=== PATIENT | female | born 1985 | race Caucasian/White ===

== ENCOUNTER 2021-03-18 12:42 | Emergency (ER) | payer MEDICAID, SELFPAY ==
[2021-03-18 14:09] VITALS: BP 134/82; PULSE 67; RESP 14; TEMP 36.9; O2SAT 100; BMI 49.3
--- NOTE | 2021-03-18 14:25 | HMH.EDUTC ---
[facility] [place] Disposition Clinical Impression: Eye problem Disposition: Home, Self-Care Condition on Discharge: Good Additional Instructions: Go straight to [facility] upon leaving the [facility] Further treatment per [facility] Return if needed Straight to ER if any life threatening symptoms Referrals: Provider,Referral, [Primary Care Provider] - [facility] [Other] Medical Decision Making - Anand Inquiry Pt receiving controlled substance: No Anand was queried for this patient: No Vital Signs: 03/18/21 14:09 03/18/21 14:31 Temperature 98.4 F 98.4 F Temperature Source Oral Pulse Rate 67 Pulse Rate [Left] 67 Respiratory Rate 14 14 Blood Pressure 134/82 Blood Pressure [Right Arm] 134/82 Blood Pressure Mean [Right Arm] 99 02 Sat by Pulse Oximetry 100 - Physician Consults Physician Consulted: Dr Briceno Time: 14:33 Reason -: Opthalmology Eval/Care Comment/Response: Spoke with staff at Dr Briceno office and informed them of finding and they advised to Dc patient from the [facility] and have her come to the office for further evaluation and treatment [facility] [place] HPI - General Stated complaint: left eye swollen Time Seen by Provider: 03/18/21 14:25 Mode of Arrival: Ambulatory Source of Information: Patient Limitations: No Limitations Description of Symptoms (Recalled from Triage Doc. by RN): pt was tx 01/13 at the [facility] for a stye in the upper L eyelid. pt reports the eye has gotten worse since. the upper L eye lid is edematous fron the inside corner all the way accross to the outside corner so much that her eye is almost swelled shut. HEENT Symptoms (Recalled from RN notes): Yes (L upper eye lid edema and pain) Resp Symptoms (Recalled from RN notes): No Skin Symptoms (Recalled from RN notes): No MS Symptoms (Recalled from RN notes): No Functional Status (Recalled from RN notes): wnl - History of Present Illness Provider Complaint: Patient states that she was seen and treated over the weekend for stye and swelling in left eye States that since then it has continued to swell but has been draining yellowish green pus States that today she was still having drainage and felt like she had another bump under her eyelid so she came in to get checked - Related Data Previous Rx's Medication Instructions Recorded norgestimate 0.25 mg-ethinyl 1 tab PO DAILY #28 tab 01/07/21 estradiol 35 mcg tablet spironolactone 100 mg tablet 100 mg PO DAILY #30 tab 01/07/21 erythromycin 5 mg/gram (0.5 %) eye 0.5 inch OPHTHALMIC BID #1 g 03/15/21 ointment Allergies Allergy/AdvReac Type Severity Reaction Status Date / Time diphenhydramine Allergy HIVES Verified 03/15/21 16:33 [From Benadryl] - Worker's Comp Is this a Worker's Comp case?: No [facility] History - Hepatitis A Screen Drug use history?: No High risk sexual behaviors?: No History of sexually transmitted infection?: No Currently employed?: No Childcare worker?: No Do you have indoor plumbing?: Yes Do you have electricity?: Yes Attestation statement:: This patient has been screened for Hepatitis A risk factors. 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
[2021-03-18 14:31] VITALS: BP 134/82; PULSE 67; RESP 14; TEMP 36.9
== END 2021-03-18 14:33 | disposition home or self-care (01) ==
PROVIDERS: Emergency Provider Nurse Practitioner
DX: H02.844 Edema of left upper eyelid (principal); F17.210 Nicotine dependence, cigarettes, uncomplicated
CPT/HCPCS: 99202; G0463

== ENCOUNTER → 2021-05-08 13:57 | Outpatient (CLI) | payer MEDICAID, SELFPAY | PROVIDERS: PCP Nurse Practitioner Family; Visit Provider Nurse Practitioner | DX: U07.1 COVID-19 (principal) | CPT/HCPCS: C9803; U0003; U0005 ==

== ENCOUNTER → 2021-06-06 11:30 | Outpatient (CLI) | payer MEDICAID, SELFPAY ==
[2021-06-07 12:14] LABS: Covid-19 Nasal PCR Sendout Lex NOT DETECTED
== END ==
PROVIDERS: Visit Provider Nurse Practitioner
DX: Z20.822 Contact with and (suspected) exposure to COVID-19 (principal)
CPT/HCPCS: C9803; U0004; U0005

== ENCOUNTER 2021-10-17 16:35 | Emergency (ER) | payer MEDICAID, SELFPAY ==
[2021-10-17 16:50] VITALS: BP 137/105; PULSE 81; RESP 18; TEMP 36.7; O2SAT 100; BMI 25.1
--- NOTE | 2021-10-17 17:15 | HMH.EDUTC ---
[facility] [place] Disposition Clinical Impression: Encounter for laboratory testing for COVID-19 virus Disposition: Home, Self-Care Condition on Discharge: Good Instructions: Sore Throat, DI for COVID-19 (Suspected or Confirmed ), Preventing the Spread of Coronavirus Discharge Instructions Additional Instructions: *Monitor Temp, Over the counter Motrin or Tylenol as directed/as needed Tylenol every 4 hours and Motrin every 6 hours (as long as your family doctor has told you that you can take it) for fever or pain. and straight to ER if unable to lower temp less than 101.0 after medication given Follow up IMMEDIATELY for new or worsening symptoms or no Noticeable improvement over the next 48-72 hours. 911 for difficulty breathing or swallowing You were tested for today for COVID19 your test result should be back in the next 24-48 hours, you may check your results on the [facility] my Health Portal Make sure to take your Vitamins Vit. C Vit D and Zinc if you can take them Referrals: Provider,Referral, MD [Primary Care Provider] - As needed Forms: Work/School Release Medical Decision Making - Anand Inquiry Pt receiving controlled substance: No Anand was queried for this patient: No Vital Signs: 10/17/21 16:50 10/17/21 17:19 Temperature 98.0 F 98.0 F Temperature Source Oral Pulse Rate 81 Pulse Rate [Right Brachial] 81 Respiratory Rate 18 18 Blood Pressure 137/105 H Blood Pressure [Right Arm] 137/105 H Blood Pressure Mean [Right Arm] 115 Blood Pressure Source [Right Arm] Automatic Cuff Blood Pressure Position [Right Arm] Sitting 02 Sat by Pulse Oximetry 100 Oxygen Delivery Method Room Air - Lab Data Lab results reviewed: Yes: I reviewed the patient's lab results. Lab Results 10/17/21 17:11: Group A Strep Rapid Negative Orders (Tests/Meds): ORDERS Category Date Time Status Covid-19 Nasal PCR ([facility]) Routine Lab 10/17/21 16:50 Received Strep Screen Confirmation Stat Micro 10/17/21 17:11 Received [facility] [place] HPI - General Stated complaint: Covid Test Time Seen by Provider: 10/17/21 17:10 Mode of Arrival: Ambulatory Source of Information: Patient Limitations: No Limitations Description of Symptoms (Recalled from Triage Doc. by RN): PATIENT C/O SORE THROAT, VOMITING, EAR ACHE, AND LOSS OF TASTE. POSITIVE AT HOME COVID TEST HEENT Symptoms (Recalled from RN notes): No Resp Symptoms (Recalled from RN notes): No Skin Symptoms (Recalled from RN notes): No MS Symptoms (Recalled from RN notes): No Functional Status (Recalled from RN notes): WNL - History of Present Illness Provider Complaint: Patient states that she has been having sore scratchy throat, nasal congestion, vomiting and loss of taste States that she took an at home COVID test and it was positive so she came in to get checked out - Related Data Previous Rx's Medication Instructions Recorded norgestimate 0.25 mg-ethinyl 1 tab PO DAILY #28 tab 01/07/21 estradiol 35 mcg tablet erythromycin 5 mg/gram (0.5 %) eye 0.5 inch OPHTHALMIC BID #1 g 03/15/21 ointment spironolactone 100 mg tablet See Rx Instructions .ROUTE 09/04/21 .COMPLEX #30 tab Allergies Allergy/AdvReac Type Severity Reaction Status Date / Time diphenhydramine Allergy HIVES Verified 03/15/21 16:33 [From Benadeunicel] - Worker's Comp Is this a Worker's Comp case?: No [facility] History - Hepatitis A Screen Attestation statement:: This patient has been screened for Hepatitis A risk factors. 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
[2021-10-17 17:19] VITALS: BP 137/105; PULSE 81; RESP 18; TEMP 36.7; O2SAT 100
[2021-10-17 17:30] LABS: Strep Scrn Group A (Rapid) Negative (Negative)
== END 2021-10-17 17:45 | disposition home or self-care (01) ==
PROVIDERS: Emergency Provider Nurse Practitioner
DX: Z20.822 Contact with and (suspected) exposure to COVID-19 (principal); J02.9 Acute pharyngitis, unspecified; R11.10 Vomiting, unspecified; H92.09 Otalgia, unspecified ear; R43.9 Unspecified disturbances of smell and taste
CPT/HCPCS: 87430; 99212; C9803; G0463; U0003; U0005

== ENCOUNTER 2021-10-31 04:41 | Emergency (ER) | payer MEDICAID, SELFPAY ==
[2021-10-31 04:50] VITALS: BP 152/87; PULSE 105; RESP 24; TEMP 38.5; O2SAT 99; BMI 50.2
--- NOTE | 2021-10-31 04:56 | XR_ITS ---
PROCEDURE INFORMATION: Exam: XR Chest Exam date and time: 10/31/2021 5:00 AM Age: 36 years old Clinical indication: Cough and fever; Additional info: Cough, fever TECHNIQUE: Imaging protocol: Radiologic exam of the chest. Views: 2 views. COMPARISON: No relevant prior studies available. FINDINGS: Lungs: No acute findings or consolidation. Pleural spaces: No pleural effusion. No pneumothorax. Heart/Mediastinum: No acute findings or cardiomegaly. Bones/joints: No acute findings. IMPRESSION: No acute cardiopulmonary findings.
[2021-10-31 05:06] LABS: Basophils # 0.2 K/mm3 (0-0.2); Basophils % 2.6 % (0.1-2.0); Eosinophils # 0.1 K/mm3 (0.0-0.4); Hematocrit 37.9 % (37.0-47.0); Hemoglobin 12.1 g/dL (12.2-16.2); Lymphocytes # 1.2 K/mm3 (0.7-4.5); Lymphocytes % 18.1 % (10-50); Mean Corpuscular HGB Conc 31.9 g/dL (31.8-35.4); Mean Corpuscular Hemoglobin 29.1 pg (27.0-31.2); Mean Corpuscular Volume 91.2 fl (81-99); Mean Platelet Volume 8.4 fl (7.4-10.4); Monocytes # 0.2 K/mm3 (0.1-1.0); Monocytes % 3.6 % (1.7-9.3); Neutrophils # 4.9 K/mm3 (1.8-7.8); Neutrophils % 73.7 % (37.0-80.0); Platelet Count 362 K/mm3 (142-424); Red Blood Count 4.15 M/mm3 (4.20-5.40); Red Cell Distribution Width 14.1 % (11.5-17.5); White Blood Count 6.7 K/mm3 (4.8-10.8)
[2021-10-31 05:11] LABS: Alanine Aminotransferase 30 U/L (12-78); Albumin/Globulin Ratio 1.2 (1.1-1.8); Alkaline Phosphatase 72 U/L (38-126); Anion Gap 11.7 mEq/L (5-15); Aspartate Amino Transferase 26 U/L (14-36); Blood Urea Nitrogen 15 mg/dl (7-17); Calcium 8.5 mg/dl (8.4-10.2); Carbon Dioxide 27 mmol/L (22.0-30.0); Chloride 105 mmol/L (98-107); Creatinine Clearance Estimated 74 mL/min (50-200); Estimated Glomerular Filt Rate 82 ml/min (>60); GFR (African American) 99 ML/MIN (>60); Globulin 3.3 g/dL (1.3-3.2); Glucose 98 mg/dl (74-100); Potassium 3.7 mmoL/L (3.5-5.1); Sodium 140 mmol/L (136-145); Total Protein,Serum 7.3 g/dl (6.3-8.2)
[2021-10-31 05:15] LABS: Bilirubin,Total < 0.1 mg/dl (0.2-1.3)
[2021-10-31 05:35] LABS: Influenza A, PCR Not Detected (NotDetected); Influenza B, PCR Not Detected (NotDetected)
[2021-10-31 05:58] LABS: Coronavirus 19, PCR Detected (NotDetected)
--- NOTE | 2021-10-31 06:59 | HMH.EDFEV ---
ED Disposition Clinical Impression: COVID-19 Disposition: Home, Self-Care Condition on Discharge: Good Instructions: DI for Fever (Symptom) -- Adult Additional Instructions: fluids and advil/tyenol and call pcp as needed Referrals: Provider,Referral, MD [Primary Care Provider] - - Critical Care Critical Care Time: No Attestation: On 10/31/21, the high probability of a clinically significant, sudden or life threatening deterioration of the following system(s) required my full and direct attention, intervention and personal management. The time I documented below is in addition to time spent performing reported procedures but includes the following listed in this critical care notation. Medical Decision Making - Medical Records Medical records reviewed: Yes: I reviewed the patient's medical records. - Anand Inquiry Pt receiving controlled substance: No Vital Signs: 10/31/21 04:50 Temperature 101.3 F H Temperature Source Oral Pulse Rate [Right Brachial] 105 H Respiratory Rate 24 Blood Pressure [Right Arm] 152/87 H Blood Pressure Mean [Right Arm] 108 Blood Pressure Source [Right Arm] Automatic Cuff Blood Pressure Position [Right Arm] Sitting 02 Sat by Pulse Oximetry 99 Oxygen Delivery Method Room Air - Lab Data Lab results reviewed: Yes: I reviewed the patient's lab results. Lab Results 10/31/21 04:45: SARS-CoV-2 (PCR) Detected A, Influenza A Untype (PCR) Not detected, Influenza Type B (PCR) Not detected 10/31/21 04:52: WBC 6.7, RBC 4.15 L, Hgb 12.1 L, Hct 37.9, MCV 91.2, MCH 29.1, MCHC 31.9, RDW 14.1, Plt Count 362, MPV 8.4, Neut % (Auto) 73.7, Lymph % (Auto) 18.1, Sully % (Auto) 3.6, Eos % (Auto) 2.0, Baso % (Auto) 2.6 H, Neut # (Auto) 4.9, Lymph # (Auto) 1.2, Sully # (Auto) 0.2, Eos # (Auto) 0.1, Baso # (Auto) 0.2 10/31/21 04:52: Sodium 140, Potassium 3.7, Chloride 105, Carbon Dioxide 27, Anion Gap 11.7, BUN 15, Creatinine 0.80, Estimated Creat Clear 74, Estimated GFR 82, Est GFR ( Amer) 99, Glucose 98, Calcium 8.5, Total Bilirubin < 0.1 L, AST 26, ALT 30, Alkaline Phosphatase 72, Total Protein 7.3, Albumin 4.0, Globulin 3.3 H, Albumin/Globulin Ratio 1.2 Result diagrams: 10/31/21 04:52 10/31/21 04:52 Orders (Tests/Meds): ED MEDICATIONS Discontinued Medications Generic Name Dose Route Start Last Admin Trade Name Cleve PRN Reason Stop Dose Admin Sodium Chloride 1,000 mls @ 999 mls/hr 10/31/21 05:00 10/31/21 04:59 Sod Chlor 0.9% 1000ml Bag IV 10/31/21 06:00 999 mls/hr .Q1H1M NADIA Administration Ketorolac Tromethamine 30 mg 10/31/21 04:56 10/31/21 04:59 Ketorolac 30mg/Ml Vial IV 10/31/21 04:57 30 mg ONCE ONE Administration Methylprednisolone Sodium Succinate 125 mg 10/31/21 04:56 10/31/21 04:59 Methylprednisolone Sod Succ 125mg Vial IV 10/31/21 04:57 125 mg ONCE ONE Administration Ondansetron HCl 4 mg 10/31/21 04:56 10/31/21 04:59 Ondansetron 4mg/2ml Vial IV 10/31/21 04:57 4 mg ONCE ONE Administration - Radiology Data #1 Image(s): Chest Image Reviewed: Yes I have reviewed radiologist's interpretation Preliminary Findings: Normal/NAD Medical Decision Narrative: has stable exam and covid-19 Fever HPI - General Chief Complaint: Fever Stated Complaint: fever, chills, cough, body aches Time Seen by Provider: 10/31/21 06:00 Mode of Arrival: Family Vehicle Source of Information: Patient, Medical Record Limitations: No Limitations Description of Symptoms (Recalled from ER Triage Doc. by RN): patient presents with complaints of chills,fever,body aches, dry cough. states she started feeling badly yesterday and thought it was where she had snuck and smoked a few cigarettes after having quit for several weeks. Patient goes on to deny any additional medical history, although admits to taking spironolactone daily. Did not received covid or flu vaccines. Has not sought medical care for this prior to this visit. Has not taken any O
[2021-10-31 07:12] VITALS: BP 121/69; PULSE 78; RESP 17; TEMP 37.2; O2SAT 95
== END 2021-10-31 07:19 | disposition home or self-care (01) ==
PROVIDERS: Emergency Provider Emergency Medicine
DX: U07.1 COVID-19 (principal); R50.9 Fever, unspecified; E28.2 Polycystic ovarian syndrome; E66.9 Obesity, unspecified; Z68.43 Body mass index [BMI] 50.0-59.9, adult; F17.210 Nicotine dependence, cigarettes, uncomplicated; Z88.8 Allergy status to other drugs, medicaments and biological substances
CPT/HCPCS: 71046; 80053; 85025; 96361; 96374; 96375; 99284; C9803; J2405; U0003; U0005

== ENCOUNTER 2022-04-30 10:48 | Emergency (ER) | payer MEDICAID, SELFPAY ==
[2022-04-30 11:40] VITALS: BP 159/89; PULSE 89; RESP 19; TEMP 36.8; O2SAT 95; BMI 52.9
--- NOTE | 2022-04-30 11:41 | EXP.UTC ---
Discharge Plan Disposition Patient Disposition: Home, Self-Care Condition: Good Prescriptions Prescriptions: New prednisone 10 mg tablet 10 mg PO BID 3 Days Qty: 6 0RF amoxicillin [amoxicillin] 500 mg tablet 500 mg PO TID 10 Days Qty: 30 0RF benzonatate [benzonatate] 100 mg capsule 100 mg PO TIDP PRN (Reason: Cough) Qty: 30 0RF No Action erythromycin 5 mg/gram (0.5 %) ointment 0.5 inch OPHTHALMIC BID Qty: 1 0RF Rx Instructions: apply ointment for the next 7 days. norgestimate-ethinyl estradiol [Sprintec (28)] 0.25-35 mg-mcg tablet 1 tab PO DAILY Qty: 28 6RF spironolactone 100 mg tablet See Rx Instructions .ROUTE .COMPLEX Qty: 30 6RF Dose Instruction: TAKE ONE TABLET BY MOUTH ONCE DAILY Rx Instructions: TAKE ONE TABLET BY MOUTH ONCE DAILY Referrals Follow up/Referrals: Provider,Referral, MD [Primary Care Provider] - See instructions Activity Restrictions/Add. Instructions Additional Instructions/Restrictions: Drink plenty of fluids. Take tylenol or ibuprofen for pain or fever. Take the medications as directed. Follow up with your regular doctor. GO TO THE ER FOR ANY WORSENING SYMPTOMS Clinical Impressions Clinical Impression: Strep throat Stand Alone Forms Stand Alone Forms: Work/School Release Instructions Patient Instructions: Strep Throat, DI for Strep Throat Discharge ED Provider: Chandana Flores [facility] [place] General Stated complaint: cough, sore throat, Lt ear pain Time Seen by Provider: 04/30/22 11:41 History of Present Illness Provider Complaint: She states that she has had a sore throat for the past 3 days. She also has had chills and body aches. Related Data Previous Rx's Medication Instructions Recorded norgestimate 0.25 mg-ethinyl 1 tab PO DAILY #28 tabs 01/07/21 estradiol 35 mcg tablet (Sprintec (28)) erythromycin 5 mg/gram (0.5 %) eye 0.5 inch ophthalmic (eye) BID #1 g 03/15/21 ointment spironolactone 100 mg tablet See Rx Instructions .Route 11/13/21 .COMPLEX #30 tabs amoxicillin 500 mg tablet 500 mg PO TID 10 days #30 tabs 04/30/22 benzonatate 100 mg capsule 100 mg PO TIDP PRN Cough #30 caps 04/30/22 prednisone 10 mg tablet 10 mg PO BID 3 days #6 tabs 04/30/22 PFSH [facility] Disclaimer: The information contained in this section may have been updated after the patient was seen, as this information can be updated by other users. Social History Smoking Status: Current every day smoker tobacco type: cigarettes alcohol intake: never current occupational status: unemployed Travel in the last 8 weeks: None ROS Obtained: Yes All systems reviewed & no additional complaints except as documented Constitutional Constitutional: Reports chills and Reports fever(s) Eyes Eyes: Denies eye discharge ENT Ears, Nose, Mouth, and Throat: Reports as per HPI Cardiovascular Cardiovascular: Denies chest pain Respiratory Respiratory: Denies chest congestion and Reports cough Gastrointestinal Gastrointestingal: Reports nausea; Denies abdominal pain, constipation, cramping, diarrhea or vomiting Musculoskeletal Musculoskeletal: Denies arthralgias Integumentary/Breasts Skin/Breast: Denies rash Neurologic Neurologic: Denies paresthesias Physical Exam General General appearance: alert and in no apparent distress Head Head exam: atraumatic, normocephalic and normal inspection Eye Eye exam: Present normal appearance, PERRL and EOMI ENT ENT exam: Present mucous membranes moist and normal external ear exam Expanded ENT Exam TM/Canal exam: Bilateral TM: erythema and bulging Nose exam: Absent sinus tenderness Mouth exam: Present normal external inspection; Absent drooling Teeth exam: Present normal inspection Throat exam: Present tonsillar erythema, tonsillomegaly and tonsillar exudate Neck Neck exam: Present normal inspection, full ROM and trachea midline; Absent tenderness,
[2022-04-30 11:49] LABS: UTC Strep Screen (Rapid) Positive (Negative)
[2022-04-30 12:17] VITALS: BP 159/89; PULSE 89; RESP 19; TEMP 36.8; O2SAT 95
== END 2022-04-30 12:17 | disposition home or self-care (01) ==
PROVIDERS: Emergency Provider Nurse Practitioner Family
DX: J02.0 Streptococcal pharyngitis (principal)
CPT/HCPCS: 87880; 99212; 99213; G0463

== ENCOUNTER 2022-07-04 19:46 | Emergency (ER) | payer MEDICAID, SELFPAY ==
[2022-07-04 19:59] VITALS: BP 135/86; PULSE 102; RESP 18; TEMP 36.6; O2SAT 97; BMI 49.1
[2022-07-04 20:12] LABS: Coronavirus 19, PCR Not Detected (NotDetected); Influenza A, PCR Not Detected (NotDetected); Influenza B, PCR Not Detected (NotDetected)
[2022-07-04 20:26] LABS: Strep Scrn Group A (Rapid) Negative (Negative)
--- NOTE | 2022-07-04 20:53 | HMH.EDURI ---
Discharge Plan Disposition Patient Disposition: Home, Self-Care Prescriptions Prescriptions: New prednisone [prednisone] 20 mg tablet 20 mg PO BID Qty: 10 0RF cephalexin [cephalexin] 500 mg capsule 500 mg PO TID Qty: 30 0RF No Action erythromycin 5 mg/gram (0.5 %) ointment 0.5 inch OPHTHALMIC BID Qty: 1 0RF Rx Instructions: apply ointment for the next 7 days. norgestimate-ethinyl estradiol [Sprintec (28)] 0.25-35 mg-mcg tablet 1 tab PO DAILY Qty: 28 6RF spironolactone 100 mg tablet See Rx Instructions .ROUTE .COMPLEX Qty: 30 6RF Dose Instruction: TAKE ONE TABLET BY MOUTH ONCE DAILY Rx Instructions: TAKE ONE TABLET BY MOUTH ONCE DAILY prednisone 10 mg tablet 10 mg PO BID 3 Days Qty: 6 0RF amoxicillin [amoxicillin] 500 mg tablet 500 mg PO TID 10 Days Qty: 30 0RF benzonatate [benzonatate] 100 mg capsule 100 mg PO TIDP PRN (Reason: Cough) Qty: 30 0RF Referrals Follow up/Referrals: Luis Alberto Calloway APRN [Primary Care Provider] - See instructions Clinical Impressions Clinical Impression: Uvulitis Discharge ED Provider: Felicia (ED)Tio URI/Sore Throat HPI General Chief Complaint: Upper Respiratory Infection Stated Complaint: FB stuck in throat SOB Time Seen by Provider: 07/04/22 20:53 Mode of Arrival: Ambulatory Source of Information: Patient and Medical Record Limitations: No Limitations Description of Symptoms (Recalled from ER Triage Doc. by RN): Pt arrives via private vehicle. States that she has felt a fullness in her throat since Wednesday. States that when she woke up this morning she states that the fullness goes down my throat when I swallow . States that she can swallow fluids and foods. Does report that she has been having some left sided ear pain. History of Present Illness HPI Narrative: pt with swelling with post throat over the last few days with painful swolling MD Complaint: sore throat Onset (ago): day(s) Duration: intermittent Severity: moderate Able to tolerate fluids by mouth: Yes Associated symptoms: denies other symptoms Treatments prior to arrival: none Related Data Previous Rx's Medication Instructions Recorded norgestimate 0.25 mg-ethinyl 1 tab PO DAILY #28 tabs 01/07/21 estradiol 35 mcg tablet (Sprintec (28)) erythromycin 5 mg/gram (0.5 %) eye 0.5 inch ophthalmic (eye) BID #1 g 03/15/21 ointment spironolactone 100 mg tablet See Rx Instructions .Route 11/13/21 .COMPLEX #30 tabs amoxicillin 500 mg tablet 500 mg PO TID 10 days #30 tabs 04/30/22 benzonatate 100 mg capsule 100 mg PO TIDP PRN Cough #30 caps 04/30/22 prednisone 10 mg tablet 10 mg PO BID 3 days #6 tabs 04/30/22 cephalexin 500 mg capsule 500 mg PO TID #30 caps 07/04/22 prednisone 20 mg tablet 20 mg PO BID #10 tabs 07/04/22 Allergies Allergy/AdvReac Type Severity Reaction Status Date / Time No Known Allergies Allergy Verified 07/04/22 20:03 [facility] Disclaimer: The information contained in this section may have been updated after the patient was seen, as this information can be updated by other users. Social History Smoking Status: Current every day smoker tobacco type: cigarettes alcohol intake: never current occupational status: unemployed Travel in the last 8 weeks: None ROS Obtained: Yes All systems reviewed & no additional complaints except as documented Physical Exam General General appearance: alert Head Head exam: normocephalic Eye Eye exam: Present PERRL and EOMI ENT ENT exam: Present mucous membranes moist and other (swollen ) Neck Neck exam: Present trachea midline Respiratory Respiratory exam: Absent respiratory distress Cardiovascular Cardiovascular exam: Present regular rate Abdominal Exam Abdominal exam: Present soft Extremities Exam Extremities exam: Present full ROM Neurological Exam Neurological exam: Present alert, oriented X3 and CN II-XII inta
[2022-07-04 21:24] VITALS: BP 130/80; PULSE 99; RESP 18; TEMP 36.6; O2SAT 99
== END 2022-07-04 21:26 | disposition home or self-care (01) ==
PROVIDERS: Emergency Provider Emergency Medicine; PCP Nurse Practitioner Family
DX: K12.2 Cellulitis and abscess of mouth (principal); F17.210 Nicotine dependence, cigarettes, uncomplicated
CPT/HCPCS: 87430; 99283; 99284; C9803; U0003; U0005

== ENCOUNTER 2022-07-31 20:39 | Emergency (ER) | payer MEDICAID, SELFPAY ==
[2022-07-31 20:40] VITALS: BP 142/98; PULSE 83; RESP 16; TEMP 36.8; O2SAT 98; BMI 51.0
[2022-07-31 21:03] LABS: Coronavirus 19, PCR Not Detected (NotDetected); Influenza A, PCR Not Detected (NotDetected); Influenza B, PCR Not Detected (NotDetected)
--- NOTE | 2022-07-31 21:04 | XR_ITS ---
PROCEDURE INFORMATION: Exam: XR Chest Exam date and time: 07/31/2022 9:03 PM Age: 36 years old Clinical indication: Cough TECHNIQUE: Imaging protocol: Radiologic exam of the chest. Views: 2 views. COMPARISON: CR XR CHEST 2V 10/31/2021 5:00 AM FINDINGS: Lungs: Unremarkable. No consolidation. Pleural spaces: Unremarkable. No pleural effusion. No pneumothorax. Heart/Mediastinum: Unremarkable. No cardiomegaly. Bones/joints: Unremarkable. IMPRESSION: No acute findings.
[2022-07-31 21:16] LABS: Strep Scrn Group A (Rapid) Negative (Negative)
--- NOTE | 2022-07-31 21:29 | HMH.EDURI ---
Discharge Plan Disposition Patient Disposition: Home, Self-Care Prescriptions Prescriptions: New azithromycin [azithromycin] 250 mg tablet 250 mg PO DIRECTED Qty: 6 0RF Rx Instructions: Take two (2) tablets on day #1, then one (1) tablet day #2 thru #5 No Action erythromycin 5 mg/gram (0.5 %) ointment 0.5 inch OPHTHALMIC BID Qty: 1 0RF Rx Instructions: apply ointment for the next 7 days. norgestimate-ethinyl estradiol [Sprintec (28)] 0.25-35 mg-mcg tablet 1 tab PO DAILY Qty: 28 6RF prednisone 10 mg tablet 10 mg PO BID 3 Days Qty: 6 0RF amoxicillin [amoxicillin] 500 mg tablet 500 mg PO TID 10 Days Qty: 30 0RF benzonatate [benzonatate] 100 mg capsule 100 mg PO TIDP PRN (Reason: Cough) Qty: 30 0RF prednisone [prednisone] 20 mg tablet 20 mg PO BID Qty: 10 0RF cephalexin [cephalexin] 500 mg capsule 500 mg PO TID Qty: 30 0RF spironolactone 100 mg tablet See Rx Instructions .ROUTE .COMPLEX Rx Instructions: TAKE ONE TABLET BY MOUTH ONCE DAILY Referrals Follow up/Referrals: Luis Alberto Calloway APRN [Primary Care Provider] - See instructions Clinical Impressions Clinical Impression: Pharyngitis Instructions Patient Instructions: DI for Pharyngitis/Tonsillopharyngitis -- Adult Discharge ED Provider: Felicia (ED)Tio URI/Sore Throat HPI General Chief Complaint: Upper Respiratory Infection Stated Complaint: SORE THROAT, COUGH Time Seen by Provider: 07/31/22 21:15 Mode of Arrival: Ambulatory Source of Information: Patient and Medical Record Limitations: No Limitations Description of Symptoms (Recalled from ER Triage Doc. by RN): Pt arrives to ED with c/o a sore throat and cough for approx 2 days that has worsened today. Pt denies n/v/d, chest pain and having a fever. Pt stated she has taken two doses of anbx that she had at home, but can not recall the name. Pt stated it gave her no relief. History of Present Illness HPI Narrative: sore throat and cough over the last few days no rash MD Complaint: cough and sore throat Onset (ago): day(s) Duration: intermittent Severity: moderate Able to tolerate fluids by mouth: Yes Associated symptoms: denies other symptoms Related Data Home Medications Medication Instructions Recorded Confirmed spironolactone 100 mg tablet See Rx Instructions .Route 07/31/22 07/31/22 .COMPLEX Fluid Previous Rx's Medication Instructions Recorded norgestimate 0.25 mg-ethinyl 1 tab PO DAILY #28 tabs 01/07/21 estradiol 35 mcg tablet (Sprintec (28)) erythromycin 5 mg/gram (0.5 %) eye 0.5 inch ophthalmic (eye) BID #1 g 03/15/21 ointment amoxicillin 500 mg tablet 500 mg PO TID 10 days #30 tabs 04/30/22 benzonatate 100 mg capsule 100 mg PO TIDP PRN Cough #30 caps 04/30/22 prednisone 10 mg tablet 10 mg PO BID 3 days #6 tabs 04/30/22 cephalexin 500 mg capsule 500 mg PO TID #30 caps 07/04/22 prednisone 20 mg tablet 20 mg PO BID #10 tabs 07/04/22 azithromycin 250 mg tablet 250 mg PO DIRECTED #6 tabs 07/31/22 Allergies Allergy/AdvReac Type Severity Reaction Status Date / Time No Known Allergies Allergy Verified 07/04/22 20:03 [facility] Disclaimer: The information contained in this section may have been updated after the patient was seen, as this information can be updated by other users. Social History Smoking Status: Current every day smoker tobacco type: cigarettes alcohol intake: never current occupational status: unemployed Travel in the last 8 weeks: None ROS Obtained: Yes All systems reviewed & no additional complaints except as documented Physical Exam General General appearance: alert Head Head exam: normocephalic Eye Eye exam: Present PERRL and EOMI ENT ENT exam: Present mucous membranes moist Expanded ENT Exam Throat exam: Absent tonsillomegaly, tonsillar exudate, R peritonsillar mass, L peritonsillar mass or muffled voi
[2022-07-31 21:46] VITALS: BP 136/78; PULSE 68; RESP 16; TEMP 36.9; O2SAT 99
== END 2022-07-31 21:50 | disposition home or self-care (01) ==
PROVIDERS: Emergency Provider Emergency Medicine; PCP Nurse Practitioner Family
DX: J02.9 Acute pharyngitis, unspecified (principal); J06.9 Acute upper respiratory infection, unspecified
CPT/HCPCS: 71046; 87430; 99284; C9803; U0003; U0005

== ENCOUNTER 2022-09-25 21:16 | Emergency (ER) | payer MEDICAID, SELFPAY ==
[2022-09-25 21:17] VITALS: BP 153/85; PULSE 82; RESP 17; TEMP 36.7; O2SAT 100; BMI 47.7
--- NOTE | 2022-09-25 21:18 | XR_ITS ---
PROCEDURE INFORMATION: Exam: XR Chest Exam date and time: 09/25/2022 9:54 PM Age: 37 years old Clinical indication: Pain; Chest pressure; Additional info: Chest pain TECHNIQUE: Imaging protocol: Radiologic exam of the chest. Views: 2 views. COMPARISON: CR XR CHEST 2V 07/31/2022 9:03 PM FINDINGS: Lungs: Unremarkable. No consolidation. Pleural spaces: Unremarkable. No pleural effusion. No pneumothorax. Heart/Mediastinum: Unremarkable. No cardiomegaly. Bones/joints: Unremarkable. IMPRESSION: No acute findings.
--- NOTE | 2022-09-25 21:18 | ECG_ITS ---
APPROVED REPORT Exam: Resting ECG HR:83 bpm ECG Measurements Heart Rate 83 AXES SC 131 P 43 QRSd 110 QRS 67 QT 385 T 4 QTc 425 Conclusion SINUS RHYTHM MINIMAL ST DEPRESSION [0.025+ mV ST DEPRESSION] BORDERLINE ECG UNCONFIRMED REPORT Electronically signed by : Jaziel Brooke MD 09/27/2022 11:36:31
[2022-09-25 21:40] LABS: Basophils # 0.1 K/mm3 (0-0.2); Basophils % 0.9 % (0.1-2.0); Eosinophils # 0.2 K/mm3 (0.0-0.4); Eosinophils % 1.6 % (0.1-12.0); Hematocrit 40.2 % (37.0-47.0); Hemoglobin 12.7 g/dL (12.2-16.2); Lymphocytes # 3.4 K/mm3 (0.7-4.5); Lymphocytes % 35.5 % (10-50); Mean Corpuscular HGB Conc 31.5 g/dL (31.8-35.4); Mean Corpuscular Hemoglobin 27.6 pg (27.0-31.2); Mean Corpuscular Volume 87.7 fl (81-99); Mean Platelet Volume 8.5 fl (7.4-10.4); Monocytes # 0.4 K/mm3 (0.1-1.0); Monocytes % 4.6 % (1.7-9.3); Neutrophils # 5.4 K/mm3 (1.8-7.8); Neutrophils % 57.3 % (37.0-80.0); Platelet Count 449 K/mm3 (142-424); Red Blood Count 4.59 M/mm3 (4.20-5.40); Red Cell Distribution Width 13.7 % (11.5-17.5); White Blood Count 9.4 K/mm3 (4.8-10.8)
[2022-09-25 21:41] LABS: Chloride 103 mmol/L (98-107); Potassium 3.9 mmoL/L (3.5-5.1); Sodium 141 mmol/L (136-145)
[2022-09-25 21:43] LABS: Alanine Aminotransferase 26 U/L (12-78); Alkaline Phosphatase 85 U/L (38-126); Aspartate Amino Transferase 31 U/L (14-36); Bilirubin,Total 0.3 mg/dl (0.2-1.3); Blood Urea Nitrogen 15 mg/dl (7-17); Creatinine Clearance Estimated 84 mL/min (50-200); Estimated Glomerular Filt Rate 95 ml/min (>60); GFR (African American) 115 ML/MIN (>60)
[2022-09-25 21:44] LABS: Albumin Level 4.2 g/dl (3.5-5.0); Albumin/Globulin Ratio 1.2 (1.1-1.8); Anion Gap 13.9 mEq/L (5-15); Calcium 8.9 mg/dl (8.4-10.2); Carbon Dioxide 28 mmol/L (22.0-30.0); Globulin 3.5 g/dL (1.3-3.2); Glucose 85 mg/dl (74-100); Total Protein,Serum 7.7 g/dl (6.3-8.2)
[2022-09-25 21:51] LABS: Activated Partial Thrombo Time 30.5 seconds (22.8-30.6); INR 0.89 (0.9-1.1); Prothrombin Time 9.7 seconds (10.1-12.5)
[2022-09-25 21:53] LABS: NT Pro Brain Natriuretic Pep. 33.9 pg/mL (0-125)
--- NOTE | 2022-09-25 21:53 | HMH.EDGENADL ---
Discharge Plan Disposition Patient Disposition: Home, Self-Care Condition: Good Chief Complaint: Chest Pain Prescriptions Prescriptions: No Action spironolactone 100 mg tablet 100 mg PO DAILY Clinical Impressions Clinical Impression: Atypical chest pain Discharge ED Provider: Mark Byrnes Adult HPI General Chief complaint: Chest Pain Stated complaint: CP Time Seen by Provider: 09/25/22 21:18 Mode of Arrival: Ambulatory Source of Information: Patient Limitations: No Limitations Description of Symptoms (Recalled from ER Triage Doc. by RN): 37 F presents from home with 24 hours of left chest pain which she describes at 6/10 sharp and non-radiating. Patient denies SOA, fever, chills. NAD otherwise, VSS History of Present Illness HPI narrative: 37yo F presents the ER secondary to chest pain that began early this morning. Pain is focal, pinpoint. There is no radiation. Denies shortness of breath, chills, diaphoresis, nausea or vomiting. No history of heart disease. Patient states her mother has A-fib, and she does not know what this means, but was concerned she might have A-fib. No previous cardiac work-up. Patient vapes. She denies diabetes. Denies any significant family history of heart disease other than her mother's A-fib. Related Data Home Medications Medication Instructions Recorded Confirmed spironolactone 100 mg tablet 100 mg PO DAILY Fluid 07/31/22 09/25/22 Allergies Allergy/AdvReac Type Severity Reaction Status Date / Time No Known Allergies Allergy Verified 07/04/22 20:03 [facility] Disclaimer: The information contained in this section may have been updated after the patient was seen, as this information can be updated by other users. Social History Smoking Status: Never smoker alcohol intake: never current occupational status: unemployed Travel in the last 8 weeks: None ROS Obtained: Yes Systems reviewed as appropriate & no additional complaints except as documented Physical Exam General General appearance: alert, in no apparent distress and obese Head Head exam: atraumatic Eye Eye exam: Present normal appearance Neck Neck exam: Present full ROM and trachea midline Chest Chest inspection: Present normal inspection Respiratory Respiratory exam: Present normal lung sounds bilaterally; Absent respiratory distress Cardiovascular Cardiovascular exam: Present regular rate, normal rhythm and normal heart sounds Abdominal Exam Abdominal exam: Present soft and normal bowel sounds; Absent distention or tenderness Extremities Exam Extremities exam: Present normal inspection and normal capillary refill; Absent tenderness or edema Neurological Exam Neurological exam: Present alert and oriented X3 Psychiatric Psychiatric exam: Present normal affect Skin Skin exam: Present warm and dry Medical Decision Making Medical Records Medical records reviewed: Yes I reviewed the patient's medical records. Anand Inquiry Pt receiving controlled substance: No Vital Signs: 09/25/22 21:17 Temperature 98.1 F Temperature Source Oral Pulse Rate [Left] 82 Respiratory Rate 17 Blood Pressure [Right Arm] 153/85 H Blood Pressure Mean [Right Arm] 107 Blood Pressure Source [Right Arm] Automatic Cuff Blood Pressure Position [Right Arm] Sitting 02 Sat by Pulse Oximetry 100 Oxygen Delivery Method Room Air Lab Data Lab results reviewed: Yes I reviewed the patient's lab results. Lab Results 09/25/22 21:20: WBC 9.4, RBC 4.59, Hgb 12.7, Hct 40.2, MCV 87.7, MCH 27.6, MCHC 31.5 L, RDW 13.7, Plt Count 449 H, MPV 8.5, Neut % (Auto) 57.3, Lymph % (Auto) 35.5, Hays % (Auto) 4.6, Eos % (Auto) 1.6, Baso % (Auto) 0.9, Neut # (Auto) 5.4, Lymph # (Auto) 3.4, Hays # (Auto) 0.4, Eos # (Auto) 0.2, Baso # (Auto) 0.1 09/25/22 21:20: PT 9.7 L, INR 0.89 L, APTT 30.5 09/25/22 21:20: Sodium 141, Potassium 3.9, Chloride 103, Carbon Dioxide 28, Anio
[2022-09-25 22:05] LABS: Troponin I < 0.01 ng/ml (0.00-0.034)
[2022-09-25 22:12] VITALS: BP 115/69; PULSE 82; RESP 16; TEMP 36.9
== END 2022-09-25 22:18 | disposition home or self-care (01) ==
PROVIDERS: Emergency Provider Family Medicine; PCP Nurse Practitioner Family
DX: R07.89 Other chest pain (principal)
CPT/HCPCS: 71046; 80053; 83880; 84484; 85025; 85610; 85730; 93005; 93041; 99285

== ENCOUNTER → 2022-10-01 10:41 | Outpatient (CLI) | payer MEDICAID, SELFPAY ==
[2022-10-01 11:29] LABS: Basophils % 0.1 % (0.1-2.0); Eosinophils % 0.1 % (0.1-12.0); Hematocrit 38.8 % (37.0-47.0); Hemoglobin 12.1 g/dL (12.2-16.2); Lymphocytes # 1.2 K/mm3 (0.7-4.5); Lymphocytes % 5.6 % (10-50); Mean Corpuscular HGB Conc 31.2 g/dL (31.8-35.4); Mean Corpuscular Hemoglobin 27.7 pg (27.0-31.2); Mean Corpuscular Volume 88.9 fl (81-99); Mean Platelet Volume 8.3 fl (7.4-10.4); Monocytes # 0.5 K/mm3 (0.1-1.0); Monocytes % 2.1 % (1.7-9.3); Neutrophils # 20.6 K/mm3 (1.8-7.8); Neutrophils % 92.1 % (37.0-80.0); Platelet Count 476 K/mm3 (142-424); Red Blood Count 4.37 M/mm3 (4.20-5.40); Red Cell Distribution Width 13.5 % (11.5-17.5); White Blood Count 22.4 K/mm3 (4.8-10.8)
[2022-10-01 11:33] LABS: MANUAL DIFFERENTIAL MANUAL DIFFERENTIAL (MANUAL DIFF)
[2022-10-01 11:42] LABS: INR 0.96 (0.9-1.1); Prothrombin Time 10.4 seconds (10.1-12.5)
[2022-10-01 11:49] LABS: Lymphocytes % 10 % (10-50); Monocytes % 1 % (2-9); Neutrophils % 89 % (42-76); Platelet Estimate Slight Increase; RBC Morphology Normal; Total Cells Counted 100
[2022-10-01 11:55] LABS: Alanine Aminotransferase 27 U/L (12-78); Albumin Level 4.2 g/dl (3.5-5.0); Albumin/Globulin Ratio 1.4 (1.1-1.8); Alkaline Phosphatase 95 U/L (38-126); Anion Gap 18.5 mEq/L (5-15); Aspartate Amino Transferase 25 U/L (14-36); Bilirubin,Total 0.3 mg/dl (0.2-1.3); Blood Urea Nitrogen 24 mg/dl (7-17); Carbon Dioxide 21 mmol/L (22.0-30.0); Chloride 106 mmol/L (98-107); Chol/HDL Ratio 3.4 (1-3.5); Cholesterol 169 mg/dl (140-200); Estimated Glomerular Filt Rate 81 ml/min (>60); GFR (African American) 98 ML/MIN (>60); Glucose 186 mg/dl (74-100); HDL Cholesterol 50 mg/dl (40-60); Potassium 4.5 mmoL/L (3.5-5.1); Sodium 141 mmol/L (136-145); Total Protein,Serum 7.2 g/dl (6.3-8.2); Triglycerides 84 mg/dl (30-150); VLDL Cholesterol 17 mg/dL (0-40)
[2022-10-01 12:06] LABS: Direct LDL Cholesterol 95.24 mg/dL (100-129)
[2022-10-02 10:51] LABS: T4 (Thyroxine) 7.9 ug/dl (5.53-11.0)
[2022-10-02 14:22] LABS: HIV Screen 4th Generation wRfx Non Reactive (Non Reactive)
[2022-11-10 23:51] LABS: Hep A Ab, Total Negative
[2022-11-10 23:52] LABS: Hep B Core Ab, Total Negative; Hep B Surface Ab, Qual Reactive; Hepatitis C Antibody Non Reactive
[2022-11-10 23:53] LABS: Fibrosis Score 0.03; Fibrosis Stage F0; Hepatitis B Surface Antigen Negative
[2022-11-10 23:54] LABS: ALT (SGPT) P5P 17; Alpha 2-Macroglobulins, Qn 179; Apolipoprotein A-1 122; Bilirubin, Total 0.2; GGT 11; Haptoglobin 221; Necroinflammat Activity Grade A0; Necroinflammat Activity Score 0.04
== END ==
PROVIDERS: PCP Nurse Practitioner Family; Visit Provider Nurse Practitioner Family
DX: R53.83 Other fatigue (principal); R06.02 Shortness of breath; R07.89 Other chest pain; R42 Dizziness and giddiness; R79.9 Abnormal finding of blood chemistry, unspecified; E55.9 Vitamin D deficiency, unspecified; Z11.59 Encounter for screening for other viral diseases; Z11.4 Encounter for screening for human immunodeficiency virus [HIV]
CPT/HCPCS: 36415; 80053; 80061; 81596; 82306; 84436; 84443; 85007; 85025; 85610; 86703; 86704; 86706; 86708; 87340; 87380; 87522; 87902; G0432

== ENCOUNTER → 2022-10-05 10:32 | Outpatient (CLI) | payer MEDICAID, SELFPAY ==
[2022-10-05 11:00] LABS: Basophils % 0.3 % (0.1-2.0); Eosinophils # 0.1 K/mm3 (0.0-0.4); Eosinophils % 0.8 % (0.1-12.0); Hematocrit 39.9 % (37.0-47.0); Hemoglobin 12.3 g/dL (12.2-16.2); Lymphocytes # 2.8 K/mm3 (0.7-4.5); Lymphocytes % 17.9 % (10-50); Mean Corpuscular HGB Conc 30.9 g/dL (31.8-35.4); Mean Corpuscular Hemoglobin 27.6 pg (27.0-31.2); Mean Corpuscular Volume 89.4 fl (81-99); Mean Platelet Volume 8.5 fl (7.4-10.4); Monocytes # 0.4 K/mm3 (0.1-1.0); Monocytes % 2.8 % (1.7-9.3); Neutrophils # 12.1 K/mm3 (1.8-7.8); Neutrophils % 78.3 % (37.0-80.0); Platelet Count 440 K/mm3 (142-424); Red Blood Count 4.46 M/mm3 (4.20-5.40); Red Cell Distribution Width 13.7 % (11.5-17.5); White Blood Count 15.4 K/mm3 (4.8-10.8)
[2022-10-05 11:06] LABS: MANUAL DIFFERENTIAL MANUAL DIFFERENTIAL (MANUAL DIFF)
[2022-10-05 13:25] LABS: Eosinophils % 1 % (0-3); Lymphocytes % 23 % (10-50); Monocytes % 2 % (2-9); Neutrophils % 74 % (42-76); RBC Morphology Normal; Total Cells Counted 100
[2022-10-05 13:26] LABS: Platelet Estimate Slight Increase
[2022-10-06 06:30] LABS: Hep B Surface Ab, Qual Reactive (.)
== END ==
PROVIDERS: PCP Nurse Practitioner Family; Visit Provider Nurse Practitioner Family
DX: R53.83 Other fatigue (principal); D72.829 Elevated white blood cell count, unspecified; Z11.59 Encounter for screening for other viral diseases
CPT/HCPCS: 36415; 85007; 85025; 86706

== ENCOUNTER → 2022-10-21 09:12 | Outpatient (CLI) | payer MEDICAID, SELFPAY | PROVIDERS: PCP Nurse Practitioner Family; Visit Provider Nurse Practitioner Family | DX: R06.02 Shortness of breath (principal) | CPT/HCPCS: 93306 ==

== ENCOUNTER → 2023-01-07 23:47 | Outpatient (CLI) | payer MEDICAID, SELFPAY ==
[2023-01-07 18:39] LABS: Amphetamine/Metha Screen,Urine Negative ng/ml (<1000)
[2023-01-07 18:40] LABS: Barbiturates Screen,Urine Negative ng/ml (<200)
[2023-01-07 18:41] LABS: Benzodiazepines Screen,Urine Negative ng/ml (<200); Cannabinoid Screen,Urine Negative ng/ml (<50)
[2023-01-07 18:42] LABS: Cocaine Screen,Urine Negative ng/ml (<300)
[2023-01-07 18:43] LABS: Methadone Screen,Urine Negative ng/ml (<300); Opiate Screen,Urine Negative ng/ml (<300)
[2023-01-07 18:44] LABS: Phencyclidine Screen,Urine Negative ng/ml (<25)
== END ==
PROVIDERS: PCP Nurse Practitioner Family; Visit Provider Nurse Practitioner Family
DX: Z79.899 Other long term (current) drug therapy (principal)
CPT/HCPCS: 80305

== ENCOUNTER 2023-02-26 18:23 | Emergency (ER) | payer MEDICAID, SELFPAY ==
--- NOTE | 2023-02-26 18:44 | EXP.UTC ---
Discharge Plan Disposition Patient Disposition: Home, Self-Care Condition: Good Prescriptions Prescriptions: New sjhcyuhpzipjlad-kgpkzvozf-MQ [Bromfed DM] 2-30-10 mg/5 mL Syrup 5 ml PO Q6H PRN (Reason: Cough) Qty: 240 0RF ondansetron 4 mg Tablet,Disintegrating 4 mg PO Q8H PRN (Reason: Nausea) Qty: 12 0RF No Action phentermine [Adipex-P] 37.5 mg tablet 37.5 mg PO DAILY 30 Days Qty: 30 0RF Rx Instructions: must administer 30 minutes before or 1-2 hours after breakfast furosemide [Lasix] 20 mg tablet 20 mg PO DAILY Qty: 3 0RF Referrals Follow up/Referrals: Luis Alberto Calloway APRN [Primary Care Provider] - See instructions Activity Restrictions/Add. Instructions Additional Instructions/Restrictions: Drink plenty of fluids. Take tylenol or ibuprofen for pain or fever. Take the medications as directed. Follow up with your regular doctor. GO TO THE ER FOR ANY WORSENING SYMPTOMS Clinical Impressions Clinical Impression: Acute viral syndrome Stand Alone Forms Stand Alone Forms: Work/School Release Instructions Patient Instructions: DI for Viral Syndrome, Coronavirus Disease 2019, Preventing the Spread of Coronavirus Discharge Instructions Discharge ED Provider: Chandana Flores [facility] General Stated complaint: sore throat, SOA, cough, no taste or smell Time Seen by Provider: 02/26/23 18:44 History of Present Illness Provider Complaint: She states that for the past 1 day she has had body aches, chills, fever and malaise. Related Data Previous Rx's Medication Instructions Recorded furosemide 20 mg tablet (Lasix) 20 mg PO DAILY #3 tabs 01/07/23 phentermine 37.5 mg tablet 37.5 mg PO DAILY 30 days #30 tabs 02/03/23 (Adipex-P) dzwefchuuaymeeh-psjxbhetwlmtegi-[id number] 5 ml PO Q6H PRN Cough #240 mL 02/26/23 2 mg-30 mg-10 mg/5 mL oral syrup (Bromfed DM) ondansetron 4 mg disintegrating 4 mg PO Q8H PRN Nausea #12 tabs 02/26/23 tablet Allergies Allergy/AdvReac Type Severity Reaction Status Date / Time No Known Allergies Allergy Verified 02/26/23 19:09 [facility] Disclaimer: The information contained in this section may have been updated after the patient was seen, as this information can be updated by other users. Medical History Cervical dysphagia (~04/2016) Surgical History H/O tubal ligation (~02/2010) H/O: Hx of tonsillectomy (Unknown) Family History Other No significant family history Social History Smoking Status: Never smoker alcohol intake: never current occupational status: unemployed Travel in the last 8 weeks: None ROS Obtained: Yes All systems reviewed & no additional complaints except as documented Constitutional Constitutional: Reports chills and Reports fever(s) Eyes Eyes: Denies eye discharge ENT Ears, Nose, Mouth, and Throat: Reports as per HPI Cardiovascular Cardiovascular: Denies chest pain Respiratory Respiratory: Denies chest congestion and Reports cough Gastrointestinal Gastrointestingal: Reports nausea; Denies abdominal pain, constipation, cramping, diarrhea or vomiting Musculoskeletal Musculoskeletal: Denies arthralgias Integumentary/Breasts Skin/Breast: Denies rash Neurologic Neurologic: Denies paresthesias Physical Exam General General appearance: alert and in no apparent distress Head Head exam: atraumatic, normocephalic and normal inspection Eye Eye exam: Present normal appearance, PERRL and EOMI ENT ENT exam: Present normal exam, normal oropharynx, mucous membranes moist, TM's normal bilaterally and normal external ear exam Neck Neck exam: Present normal inspection, full ROM and trachea midline; Absent meningismus or lymphadenopathy Chest Chest inspection: Present normal inspection and symmetric
[2023-02-26 19:00] VITALS: BP 141/70; PULSE 86; RESP 18; TEMP 36.8; O2SAT 99; BMI 19.9
[2023-02-26 19:02] LABS: UTC Influenza A Antigen Negative (Negative); UTC Influenza B Antigen Negative (Negative); UTC Strep Screen (Rapid) Negative (Negative)
[2023-02-26 19:10] VITALS: BP 138/90; PULSE 89; RESP 18; TEMP 37.2; O2SAT 99
== END 2023-02-26 19:10 | disposition home or self-care (01) ==
PROVIDERS: Emergency Provider Nurse Practitioner Family; PCP Nurse Practitioner Family
DX: R05.9 Cough, unspecified (principal); R53.81 Other malaise; B34.9 Viral infection, unspecified
CPT/HCPCS: 87635; 87804; 87880; 99212; 99214; G0463

== ENCOUNTER 2023-04-25 07:57 | Emergency (ER) | payer MEDICAID, SELFPAY ==
[2023-04-25 07:59] VITALS: BP 136/95; PULSE 83; RESP 15; TEMP 36.9; O2SAT 96; BMI 47.7
--- NOTE | 2023-04-25 07:59 | HMH.EDGENADL ---
Discharge Plan Disposition Patient Disposition: Home, Self-Care Condition: Good Prescriptions Prescriptions: New famotidine 20 mg tablet 20 mg PO Q12H PRN (Reason: hives) 3 Days Qty: 10 0RF diphenhydramine HCl [Benadryl] 25 mg capsule 25 mg PO Q8H PRN (Reason: hives) Qty: 10 0RF No Action phentermine [Adipex-P] 37.5 mg tablet 37.5 mg PO DAILY 30 Days Qty: 30 0RF Rx Instructions: must administer 30 minutes before or 1-2 hours after breakfast aspirin 81 mg Tablet 81 mg PO DAILY Referrals Follow up/Referrals: Luis Alberto Calloway APRN [Primary Care Provider] - See instructions Activity Restrictions/Add. Instructions Additional Instructions/Restrictions: As we discussed, I am reassured that your rash is clearing up. Of course, please do not come and contact again with that chemical product. I have prescribed Benadryl, as it seems that you have tolerated that medication well. Additionally I prescribed a medication called famotidine, this is commonly referred to under the tradename Pepcid, it also has uses as a type of antihistamine and can help more with skin type of symptoms. You may not require any additional doses of either these medications as you have clean the product off of your arms and you will not be coming into contact again with that product. That being said you may use them as needed. If you start to develop any worsening symptoms such as nausea, vomiting, shortness of breath, swelling, please call 911. You, for your symptoms, do not require a EpiPen. Clinical Impressions Clinical Impression: Contact dermatitis Qualifiers: Contact dermatitis type: allergic Contact dermatitis trigger: other chemical product Qualified Code(s): L23.5 - Allergic contact dermatitis due to other chemical products Stand Alone Forms Stand Alone Forms: Work/School Release Instructions Patient Instructions: DI for Skin Abscess Discharge ED Provider: Jamel Cancino General Adult HPI General Chief complaint: Skin/Abscess/Foreign Body Stated complaint: itching red rash all over body Time Seen by Provider: 04/25/23 07:59 History of Present Illness HPI narrative: Patient presents with urticarial rash on bilateral forearms, developed over neck, back, acute in onset starting earlier this morning. She describes precipitating etiology of new detergent at work. This occurred earlier this morning. She was washing dishes while at work. She describes that she came into contact with this detergent up to her bilateral forearms. She has previously washed her forearms very thoroughly. She took cetirizine prior to arrival with mild improvement of symptoms. She denies any nausea, vomiting, GI upset, shortness of breath, wheezing, or other systemic symptoms. She has not had similar symptoms before. She does describe concern for history of allergy to diphenhydramine that is quite remote, she is unsure of the reaction. Related Data Home Medications Medication Instructions Recorded Confirmed aspirin 81 mg tablet 81 mg PO DAILY 04/25/23 04/25/23 Previous Rx's Medication Instructions Recorded phentermine 37.5 mg tablet 37.5 mg PO DAILY 30 days #30 tabs 03/17/23 (Adipex-P) diphenhydramine HCl 25 mg capsule 25 mg PO Q8H PRN hives #10 caps 04/25/23 (Benadryl) famotidine 20 mg tablet 20 mg PO Q12H PRN hives 3 days #10 04/25/23 tabs Allergies Allergy/AdvReac Type Severity Reaction Status Date / Time No Known Allergies Allergy Verified 04/16/23 09:03 [facility] Disclaimer: The information contained in this section may have been updated after the patient was seen, as this information can be updated by other users. Medical History Cervical dysphagia (~04/2016) Surgical History H/O tubal ligation (~02/2010) H/O: Hx of tonsillectomy (Unknown) Family History Other No significant family history Social History Smoking Status: Current every day smoker tobacco type: cigarettes alcohol intake: never current occupational status: unemployed Travel in the last 8 weeks: None ROS Obtained: Yes Systems reviewed as appropriate & no additional complaints except as documented As per HPI Physical Exam General General appearance: alert and in no apparent distress Head Head exam: atraumatic and normocephalic Eye Eye exam: Present normal appearance Neck Neck exam: Present normal inspection Chest Chest inspection: Present normal inspection and symmetric chest wall rise Respiratory Respiratory exam: Present normal lung sounds bilaterally; Absent respiratory distress Cardiovascular Cardiovascular exam: Present regular rate and normal rhythm Abdominal Exam Abdominal exam: Present soft Extremities Exam Extremities exam: Present other (Urticarial rash on bilateral forearms, trunk, neck) Neurological Exam Neurological exam: Present alert and oriented X3 Psychiatric Psychiatric exam: Present normal affect and normal mood Skin Skin exam: Present warm, dry and other (Urticarial rash on bilateral forearms, hands, left neck, trunk) Medical Decision Making Medical Records Medical records reviewed: Yes I reviewed the patient's medical records. Anand Inquiry Pt receiving controlled substance: No Vital Signs: 04/25/23 07:59 04/25/23 08:31 04/25/23 08:40 Temperature 98.5 F 98.5 F Temperature Source Oral Pulse Rate 78 78 Pulse Rate [Left Radial] 83 Respiratory Rate 15 12 Blood Pressure 128/86 126/86 Blood Pressure [Right Arm] 136/95 H Blood Pressure Mean 101 Blood Pressure Mean [Right Arm] 108 02 Sat by Pulse Oximetry 96 99 Oxygen Delivery Method Room Air Room Air Room Air Orders (Tests/Meds): ED MEDICATIONS Discontinued Medications Generic Name Dose Route Start Last Admin Trade Name Freq PRN Reason Stop Dose Admin Diphenhydramine HCl 25 mg 04/25/23 08:11 04/25/23 08:19 Diphenhydramine 25mg Capsule PO 04/25/23 08:12 25 mg ONCE ONE Administration Famotidine 20 mg 04/25/23 08:11 04/25/23 08:19 Famotidine 20mg Tablet PO 04/25/23 08:12 20 mg ONCE ONE Administration Prednisone 40 mg 04/25/23 08:11 04/25/23 08:19 Prednisone 20mg Tab PO 04/25/23 08:12 40 mg ONCE ONE Administration Medical Decision Narrative: Patient with history and exam per above presenting for evaluation of hives Diagnoses considered include Anaphylaxis, mild to moderate allergic reaction, angioedema. Diagnosis is most consistent with moderate allergic reaction, she has no clinical evidence to suggest anaphylaxis, likely contact dermatitis. She describes that precipitating agent has been thoroughly washed off. After shared decision-making conversation with patient she is amenable to trial of diphenhydramine as I believe this will expedite resolution of symptoms, and benefits outweigh risks. ED treatment included: ED MEDICATIONS Discontinued Medications Generic Name Dose Route Start Last Admin Trade Name Freq PRN Reason Stop Dose Admin Diphenhydramine HCl 25 mg 04/25/23 08:11 04/25/23 08:19 Diphenhydramine 25mg Capsule PO 04/25/23 08:12 25 mg ONCE ONE Administration Famotidine 20 mg 04/25/23 08:11 04/25/23 08:19 Famotidine 20mg Tablet PO 04/25/23 08:12 20 mg ONCE ONE Administration Prednisone 40 mg 04/25/23 08:11 04/25/23 08:19 Prednisone 20mg Tab PO 04/25/23 08:12 40 mg ONCE ONE Administration Given diagnostic physical exam, no further workup indicated at this time Symptoms at this time are thought to be most consistent with moderate allergic reaction. Patient had improvement of symptoms upon repeat evaluation. I discussed my clinical impression with patient and answered all questions. At this time, given reassuring workup and exam, I discussed that I have a low index of suspicion for any acute pathology necessitating inpatient management. Specific return precautions were given, with understanding and agreement. Patient will follow up with primary care provider as needed. Critical Care Critical Care Time Critical Care Time: No
[2023-04-25] MEDS: diphenhydrAMINE 25MG CAPSULE 25 MG PO (08:19)
[2023-04-25] MEDS: FAMOTIDINE 20MG TABLET 20 MG PO (08:19)
[2023-04-25] MEDS: predniSONE 20MG TAB 40 MG PO (08:19)
[2023-04-25 08:31] VITALS: BP 128/86; PULSE 78; O2SAT 99
[2023-04-25 08:40] VITALS: BP 126/86; PULSE 78; RESP 12; TEMP 36.9; O2SAT 99
== END 2023-04-25 08:40 | disposition home or self-care (01) ==
PROVIDERS: Emergency Provider Emergency Medicine; PCP Nurse Practitioner Family
DX: L23.5 Allergic contact dermatitis due to other chemical products (principal); F17.210 Nicotine dependence, cigarettes, uncomplicated
CPT/HCPCS: 99283

== ENCOUNTER 2023-04-29 16:45 | Emergency (ER) | payer MEDICAID, SELFPAY ==
--- NOTE | 2023-04-29 17:21 | ED_ITS ---
Discharge Plan Disposition Patient Disposition: Home, Self-Care Condition: Good Prescriptions Prescriptions: New ibuprofen [IBU] 800 mg tablet 800 mg PO Q8HP PRN (Reason: Moderate Pain) Qty: 30 0RF No Action phentermine [Adipex-P] 37.5 mg tablet 37.5 mg PO DAILY 30 Days Qty: 30 0RF Rx Instructions: must administer 30 minutes before or 1-2 hours after breakfast aspirin 81 mg Tablet 81 mg PO DAILY famotidine 20 mg tablet 20 mg PO Q12H PRN (Reason: hives) 3 Days Qty: 10 0RF diphenhydramine HCl [Benadryl] 25 mg capsule 25 mg PO Q8H PRN (Reason: hives) Qty: 10 0RF Referrals Follow up/Referrals: Luis Alberto Calloway APRN [Primary Care Provider] - See instructions Activity Restrictions/Add. Instructions Additional Instructions/Restrictions: Drink plenty of fluids. Take the ibuprofen that we prescribed for your headache. Follow up with your regular doctor. GO TO THE ER FOR ANY WORSENING SYMPTOMS Clinical Impressions Clinical Impression: Acute viral syndrome, Headache, Exposure to 2019 novel coronavirus Instructions Patient Instructions: Coronavirus Disease 2019, Preventing the Spread of Coronavirus Discharge Instructions Discharge ED Provider: Chandana Flores [facility] [place] General Stated complaint: [place], exposed to covid Time Seen by Provider: 04/29/23 17:20 History of Present Illness Provider Complaint: She states that she has had a headache and felt bad for the past 2 days. She denies significant congestion and cough. Her mother currently has covid-19 and she has been around her mother a lot recently. Related Data Home Medications Medication Instructions Recorded Confirmed aspirin 81 mg tablet 81 mg PO DAILY 04/25/23 04/25/23 Previous Rx's Medication Instructions Recorded phentermine 37.5 mg tablet 37.5 mg PO DAILY 30 days #30 tabs 03/17/23 (Adipex-P) diphenhydramine HCl 25 mg capsule 25 mg PO Q8H PRN hives #10 caps 04/25/23 (Benadryl) famotidine 20 mg tablet 20 mg PO Q12H PRN hives 3 days #10 04/25/23 tabs ibuprofen 800 mg tablet (IBU) 800 mg PO Q8HP PRN Moderate Pain 04/29/23 #30 tabs Allergies Allergy/AdvReac Type Severity Reaction Status Date / Time No Known Allergies Allergy Verified 04/29/23 17:48 [facility] Disclaimer: The information contained in this section may have been updated after the patient was seen, as this information can be updated by other users. Medical History Cervical dysphagia (~04/2016) Surgical History H/O tubal ligation (~02/2010) H/O: Hx of tonsillectomy (Unknown) Family History Other No significant family history Social History Smoking Status: Current every day smoker tobacco type: cigarettes alcohol intake: never current occupational status: unemployed Travel in the last 8 weeks: None ROS Obtained: Yes All systems reviewed & no additional complaints except as documented Constitutional Constitutional: Reports chills and Reports fever(s) Eyes Eyes: Denies eye discharge ENT Ears, Nose, Mouth, and Throat: Reports as per HPI Cardiovascular Cardiovascular: Denies chest pain Respiratory Respiratory: Denies chest congestion and Reports cough Gastrointestinal Gastrointestingal: Reports nausea; Denies abdominal pain, constipation, cramping, diarrhea or vomiting Musculoskeletal Musculoskeletal: Denies arthralgias Integumentary/Breasts Skin/Breast: Denies rash Neurologic Neurologic: Denies paresthesias Physical Exam General General appearance: alert and in no apparent distress Head Head exam: atraumatic, normocephalic and normal inspection Eye Eye exam: Present normal appearance, PERRL and EOMI ENT ENT exam: Present normal exam, normal oropharynx, mucous membranes moist, TM's normal bilaterally and normal external ear exam Neck Neck exam: Present normal inspection, full ROM and trachea midline; Absent meningismus or lymphadenopathy Chest Chest inspection: Present normal inspection and symmetric chest wall rise; Absent tenderness Respiratory Respiratory exam: Present normal lung sounds bilaterally; Absent respiratory distress Cardiovascular Cardiovascular exam: Present regular rate and normal rhythm; Absent JVD Abdominal Exam Abdominal exam: Present soft and normal bowel sounds; Absent distention, tenderness or guarding Extremities Exam Extremities exam: Present normal inspection, full ROM and normal capillary refil l; Absent calf tenderness Back Exam Back exam: Present normal inspection; Absent tenderness Neurological Exam Neurological exam: Present alert, oriented X3, CN II-XII intact, normal gait and reflexes normal; Absent motor sensory deficit Expanded Neurological Exam Cranial nerves: Normal: EOM function (II, III, IV, ), facial sensation (V), facial palsy (VII), gag reflex (IX), spinal accessory function (XI) and tongue deviation (XII) Cerebellar function: normal gait Motor strength - LUE: 5/5 Motor strength - RUE: 5/5 Motor strength - LLE: 5/5 Motor strength - RLE: 5/5 Sensory exam upper extremity: Normal: light touch and 2 point discrimination Sensory exam lower extremity: Normal: light touch and 2 point discrimination DTR: 2+: biceps (L), biceps (R), patellar (L), patellar (R), Achilles tendon (L) and Achilles tendon (R) Psychiatric Psychiatric exam: Present normal affect and normal mood Skin Skin exam: Present warm, dry, intact and normal color Lymphatic Lymphatic Findings: no adenopathy Medical Decision Making Medical Records Medical records reviewed: No I reviewed the patient's medical records. Anand Inquiry Pt receiving controlled substance: No
[2023-04-29 17:25] VITALS: BP 156/94; PULSE 86; RESP 18; TEMP 36.9; O2SAT 96; BMI 48.6
[2023-04-29 18:16] VITALS: BP 156/94; PULSE 86; RESP 18; TEMP 36.9; O2SAT 96
[2023-04-29 18:22] LABS: Coronavirus 19, PCR Not Detected (NotDetected); Influenza A, PCR Not Detected (NotDetected); Influenza B, PCR Not Detected (NotDetected)
== END 2023-04-29 18:16 | disposition home or self-care (01) ==
PROVIDERS: Emergency Provider Nurse Practitioner Family; PCP Nurse Practitioner Family
DX: R51.9 Headache, unspecified (principal); B34.9 Viral infection, unspecified; F17.210 Nicotine dependence, cigarettes, uncomplicated
CPT/HCPCS: 87636; 99212; 99214; G0463

== ENCOUNTER 2023-06-11 09:28 | Emergency (ER) | payer MEDICAID, SELFPAY ==
[2023-06-11 09:45] VITALS: BP 147/98; PULSE 93; RESP 20; TEMP 37.1; O2SAT 99; BMI 49.3
--- NOTE | 2023-06-11 10:13 | ED_ITS ---
Discharge Plan Disposition Patient Disposition: Home, Self-Care Condition: Good Prescriptions Prescriptions: New dextromethorphan polistirex [Delsym 12 hour] 30 mg/5 mL suspension,extended rel 12 hr 10 ml PO Q12H PRN (Reason: cough) Qty: 89 0RF No Action Zepbound 2.5 mg/0.5 mL pen injector 2.5 mg SQ WEEKLY 28 Days Qty: 2 0RF ibuprofen [IBU] 800 mg tablet 800 mg PO Q8HP PRN (Reason: Moderate Pain) Qty: 30 0RF aspirin 81 mg Tablet 81 mg PO DAILY famotidine 20 mg tablet 20 mg PO Q12H PRN (Reason: hives) 3 Days Qty: 10 0RF diphenhydramine HCl [Benadryl] 25 mg capsule 25 mg PO Q8H PRN (Reason: hives) Qty: 10 0RF Referrals Follow up/Referrals: Luis Alberto Calloway APRN [Primary Care Provider] - See instructions Activity Restrictions/Add. Instructions Additional Instructions/Restrictions: *Monitor Temp, Over the counter Motrin or Tylenol as directed/as needed Tylenol every 4 hours and Motrin every 6 hours (as long as your family doctor has told you that you can take it) for fever or pain. and straight to ER if unable to lower temp less than 101.0 after medication given *Warm salt water gargles may help to soothe the throat *Throat Lozenges? *Warm fluids like tea with honey may help to soothe the throat? *Sleep elevated *Humidifier/Vaporizer Your throat swab was sent for culture. Those results are typically sent to your primary care. Be sure to follow up in 2-3 days with your family doctor/primary care physician if no improvement so they can review those result and treat if necessary. If you don?t have a primary care doctor, I recommend you get one but in the mean time, you will have to return to a walk in clinic Follow up IMMEDIATELY for new or worsening symptoms or no Noticeable improvement over the next 48-72 hours. 911 for difficulty breathing or swallowing Clinical Impressions Clinical Impression: Viral upper respiratory tract infection with cough Stand Alone Forms Stand Alone Forms: Work/School Release Instructions Patient Instructions: Cough, DI for Viral Upper Respiratory Infection -- Adult Discharge ED Provider[place] Matilde [place] [facility] [place] General Stated complaint: [place], sore throat Mode of Arrival: Ambulatory Source of Information: Patient Limitations: No Limitations Time Seen by Provider: 06/11/23 10:14 Description of Symptoms (Recalled from Triage Doc. by RN): PATIENT C/O ITCHY/DRY THROAT, CONGESTION, HEADACHE, FEELING TIRED, AND COUGH X 2 DAYS HEENT Symptoms (Recalled from RN notes): Yes Resp Symptoms (Recalled from RN notes): No Skin Symptoms (Recalled from RN notes): No MS Symptoms (Recalled from RN notes): No Functional Status (Recalled from RN notes): WNL History of Present Illness Provider Complaint: Patient states that her was sick last week and about 2 days ago she started with sore throat, nasal congestion feeling achy and tired all over and over all not feeling well States today she wasnt feeling any better so she came in to get checked Related Data Home Medications Medication Instructions Recorded Confirmed aspirin 81 mg tablet 81 mg PO DAILY 04/25/23 05/04/23 Previous Rx's Medication Instructions Recorded diphenhydramine HCl 25 mg capsule 25 mg PO Q8H PRN hives #10 caps 04/25/23 (Benadryl) famotidine 20 mg tablet 20 mg PO Q12H PRN hives 3 days #10 04/25/23 tabs ibuprofen 800 mg tablet (IBU) 800 mg PO Q8HP PRN Moderate Pain 04/29/23 #30 tabs tirzepatide (weight loss) 2.5 2.5 mg (0.5 mL) SQ WEEKLY Weight 05/05/23 mg/0.5 mL subcutaneous pen loss 4 weeks #2 mL injector (Zepbound) dextromethorphan polistirex 30 10 ml PO Q12H PRN cough #89 mL 06/11/23 mg/5 mL oral susp ext.release 12hr (Delsym 12 hour) Allergies Allergy/AdvReac Type Severity Reaction Status Date / Time No Known Allergies Allergy Verified 05/04/23 09:52 Worker's Comp Is this a Worker's Comp case?: No [facility] Disclaimer: The information contained in this section may have been updated after the patient was seen, as this information can be updated by other users. Medical History Cervical dysphagia (~04/2016) Surgical History H/O tubal ligation (~02/2010) H/O: Hx of tonsillectomy (Unknown) Family History Other No significant family history Social History Smoking Status: Current every day smoker tobacco type: cigarettes alcohol intake: never current occupational status: unemployed Travel in the last 8 weeks: None ROS Obtained: Yes All systems reviewed & no additional complaints except as documented and Yes Systems reviewed as appropriate & no additional complaints except as documented Constitutional Constitutional: Reports system reviewed and no additional complaints, except as documented, Reports as per HPI, Reports body ache, Reports chills, Reports fever(s) and Reports headache(s) ENT Ears, Nose, Mouth, and Throat: Reports system reviewed and no additional complaints, except as documented, Reports as per HPI, Reports headache(s), Reports nasal congestion and Reports sore throat Cardiovascular Cardiovascular: Reports system reviewed and no additional complaints, except as documented and Reports as per HPI Respiratory Respiratory: Reports system reviewed and no additional complaints, except as documented, Reports as per HPI and Reports cough Gastrointestinal Gastrointestingal: Reports system reviewed and no additional complaints, except as documented and as per HPI Neurologic Neurologic: Reports headache(s) Physical Exam General General appearance: alert and in no apparent distress ENT ENT exam: Present mucous membranes moist Expanded ENT Exam Nose exam: Absent sinus tenderness Throat exam: Present other (Mild pharyngeal erythema noted with PND) Respiratory Respiratory exam: Present normal lung sounds bilaterally; Absent respiratory distress or wheezes Cardiovascular Cardiovascular exam: Present regular rate, normal rhythm and normal heart sounds Abdominal Exam Abdominal exam: Present soft and normal bowel sounds; Absent distention or tenderness Neurological Exam Neurological exam: Present alert, oriented X3 and normal gait Medical Decision Making Anand Inquiry Pt receiving controlled substance: No Anand was queried for this patient: No Vital Signs: 06/11/23 09:45 Temperature 98.7 F Temperature Source Oral Pulse Rate [Left Brachial] 93 H Respiratory Rate 20 Blood Pressure [Left Arm] 147/98 H Blood Pressure Mean [Left Arm] 114 Blood Pressure Source [Left Arm] Automatic Cuff Blood Pressure Position [Left Arm] Sitting 02 Sat by Pulse Oximetry 99 Oxygen Delivery Method Room Air Lab Data Lab results reviewed: Yes I reviewed the patient's lab results.
[2023-06-11 10:31] LABS: UTC Influenza A Antigen Negative (Negative); UTC Influenza B Antigen Negative (Negative); UTC Strep Screen (Rapid) Negative (Negative)
[2023-06-11 10:39] VITALS: BP 147/98; PULSE 93; RESP 20; TEMP 37.1; O2SAT 99
[2023-06-11 10:55] LABS: Adenovirus,PCR Not Detected (NotDetected); Coronavirus 229E Not Detected (NotDetected); Coronavirus NL63 Not Detected (NotDetected); Coronavirus OC43 Not Detected (NotDetected); Coronovirus HKU1,PCR Not Detected (NotDetected); Human Metapneumovirus Not Detected (NotDetected); Influenza A, PCR Not Detected (NotDetected); Influenza AH1, 2009 Not Detected (NotDetected); Influenza AH1, PCR Not Detected (NotDetected); Influenza AH3,PCR Not Detected (NotDetected); Influenza B, PCR Not Detected (NotDetected); Parainfluenza 1, PCR Not Detected (NotDetected); Parainfluenza 2, PCR Not Detected (NotDetected); Parainfluenza 3, PCR Not Detected (NotDetected); Parainfluenza 4, PCR Not Detected (NotDetected); Respiratory Syncytial Virus Not Detected (NotDetected); Rhinovirus/Enterovirus Not Detected (NotDetected)
[2023-06-11 12:28] LABS: Coronavirus 19, PCR Detected (NotDetected)
== END 2023-06-11 10:41 | disposition home or self-care (01) ==
PROVIDERS: Emergency Provider Nurse Practitioner; PCP Nurse Practitioner Family
DX: U07.1 COVID-19 (principal); R51.9 Headache, unspecified; R07.0 Pain in throat; R05.9 Cough, unspecified; R09.81 Nasal congestion; R50.9 Fever, unspecified; F17.210 Nicotine dependence, cigarettes, uncomplicated
CPT/HCPCS: 87632; 87635; 87804; 87880; 99212; 99214; G0463

== ENCOUNTER 2023-07-16 20:19 | Emergency (ER) | payer MEDICAID, SELFPAY ==
[2023-07-16 20:26] VITALS: BP 136/93; PULSE 87; RESP 16; TEMP 36.8; O2SAT 98; BMI 50.1
--- NOTE | 2023-07-16 20:40 | XR_ITS ---
PROCEDURE INFORMATION: Exam: XR Right Wrist Exam date and time: 07/16/2023 9:00 PM Age: 37 years old Clinical indication: Injury or trauma; Other: Grabbing item; Work related; Other: Sharp pain; Additional info: Injured right arm TECHNIQUE: Imaging protocol: Radiologic exam of the right wrist. Views: 3 or more views. COMPARISON: CR WRISTCMRT XR wrist RT min 3V 11/01/2017 5:50 PM FINDINGS: Bones/joints: No fractures. Carpal relationships are normal. Distal radioulnar alignment is normal. No blastic or lytic lesions. No gross erosive changes. Soft tissues: No periostitis or osteolysis. No gross soft tissue abnormalities. No radiopaque foreign bodies. IMPRESSION: No acute findings.
--- NOTE | 2023-07-16 20:40 | XR_ITS ---
PROCEDURE INFORMATION: Exam: XR Right Forearm Exam date and time: 07/16/2023 9:00 PM Age: 37 years old Clinical indication: Injury or trauma; Other: Grabbing item; Work related; Other: Sharp pain; Injury date: 07/16/23; Additional info: Injured at work TECHNIQUE: Imaging protocol: Radiologic exam of the right forearm. Views: 2 views. COMPARISON: CR XR WRIST RT MIN 3V 07/16/2023 9:00 PM FINDINGS: Bones/joints: No acute fractures. Question mild chronic appearing cortical contour irregularity in the 5th metacarpal diaphysis suspicious for old healed fracture. Proximal and distal radioulnar alignment is normal. Elbow joint alignment is normal. Carpal relationships are normal. No blastic or lytic lesions. No elbow joint effusion. No gross wrist joint effusion. No articular erosions. Soft tissues: No periostitis or osteolysis. No gross soft tissue abnormalities. No radiopaque foreign bodies are identified. Other findings: Normal mineralization. IMPRESSION: No acute findings.
--- NOTE | 2023-07-16 21:18 | PC.NURSE ---
I was present for and agree with the ED Triage documentation
--- NOTE | 2023-07-16 21:52 | ED_ITS ---
Discharge Plan Disposition Patient Disposition: Home, Self-Care Chief Complaint: Extremity Injury, Upper Prescriptions Prescriptions: No Action metformin 500 mg tablet 500 mg PO BID Qty: 60 2RF escitalopram oxalate 10 mg Tablet 10 mg PO DAILY Referrals Follow up/Referrals: Luis Alberto Calloway APRN [Primary Care Provider] - See instructions Jacques Schilling DO [Staff Physician] - See instructions Activity Restrictions/Add. Instructions Additional Instructions/Restrictions: At this time it was felt you are safe to be discharged home. If new or worsen ing symptoms please do not hesitate to return the emergency department. If symptoms persist please call and schedule an appointment with Dr. Schilling as discussed. Clinical Impressions Clinical Impression: Muscle strain of wrist Discharge ED Provider: Kenrick Sandy General Adult HPI General Chief complaint: Extremity Injury, Upper Stated complaint: Pain in right wrist radiating up arm Time Seen by Provider: 07/16/23 20:30 Mode of Arrival: Family Vehicle Source of Information: Patient Limitations: No Limitations Description of Symptoms (Recalled from ER Triage Doc. by RN): Right arm pain patient states pain radiates from right wrist up to elbow History of Present Illness HPI narrative: Patient is a 37-year-old female who presents emergency department for evaluation of right arm pain. Patient was pushing something at work this morning when she felt a pop with pain in her right volar forearm about the wrist extending down towards the elbow. Symptoms have been refractory as the day goes on and cause her to present here for continued evaluation. Related Data Home Medications Medication Instructions Recorded Confirmed escitalopram oxalate 10 mg tablet 10 mg PO DAILY 07/16/23 07/16/23 Previous Rx's Medication Instructions Recorded metformin 500 mg tablet 500 mg PO BID #60 tabs 07/15/23 Allergies Allergy/AdvReac Type Severity Reaction Status Date / Time No Known Allergies Allergy Verified 05/04/23 09:52 [facility] Disclaimer: The information contained in this section may have been updated after the patient was seen, as this information can be updated by other users. Medical History Cervical dysphagia (~04/2016) Surgical History H/O tubal ligation (~02/2010) H/O: Hx of tonsillectomy (Unknown) Family History Other No significant family history Social History Smoking Status: Current every day smoker tobacco type: cigarettes alcohol intake: never current occupational status: unemployed Travel in the last 8 weeks: None ROS Obtained: Yes Systems reviewed as appropriate & no additional complaints except as documented Physical Exam General General appearance: alert and in no apparent distress Head Head exam: atraumatic and normocephalic Eye Eye exam: Present PERRL Neck Neck exam: Present normal inspection Chest Chest inspection: Present normal inspection Respiratory Respiratory exam: Absent respiratory distress Cardiovascular Cardiovascular exam: Present regular rate Extremities Exam Extremities exam: Present normal inspection and other (Tenderness over the volar forearm about the wrist and distal forearm. 5 out of 5 strength at the wrist, CMC, MCP, PIP, DIP joint. Capillary refill preserved in all digits of the right hand.) Neurological Exam Neurological exam: Present alert Psychiatric Psychiatric exam: Present normal affect Skin Skin exam: Present warm and dry Medical Decision Making Anand Inquiry Pt receiving controlled substance: No Vital Signs: 07/16/23 20:26 Temperature 98.3 F Temperature Source Oral Pulse Rate [Right Brachial] 87 Respiratory Rate 16 Blood Pressure [Right Arm] 136/93 H Blood Pressure Mean [Right Arm] 107 Blood Pressure Source [Right Arm] Automatic Cuff Blood Pressure Position [Right Arm] Sitting 02 Sat by Pulse Oximetry 98 Oxygen Delivery Method Room Air Orders (Tests/Meds): ORDERS Category Date Time Status XR forearm RT 2V Stat Exams 07/16/23 20:40 Taken XR wrist RT min 3V Stat Exams 07/16/23 20:40 Completed Medical Decision Narrative: In summary patient is a 37-year-old female with past medical history described above, right-handed who presents emergency department for evaluation of right forearm pain. Differential includes fracture although unlikely. Patient is neurovascularly intact and has full strength. No concern for complete tendon injury at this time however it is likely that patient has musculoskeletal strain her volar forearm flexor muscles. Limited workup will be conducted with plain films of the right wrist and forearm. X-rays informally interpreted by me, no acute fracture or dislocation. Patient was placed in wrist splint at bedside and is appropriate for outpatient management at this time. Critical Care Critical Care Time Critical Care Time: No
[2023-07-16 22:00] VITALS: BP 103/61; PULSE 79; RESP 19; TEMP 36.8; O2SAT 99
== END 2023-07-16 22:09 | disposition home or self-care (01) ==
PROVIDERS: Emergency Provider Emergency Medicine; PCP Nurse Practitioner Family
DX: S66.911A Strain of unspecified muscle, fascia and tendon at wrist and hand level, right hand, initial encounter (principal); X50.0XXA Overexertion from strenuous movement or load, initial encounter; Y99.0 Civilian activity done for income or pay; F17.210 Nicotine dependence, cigarettes, uncomplicated
CPT/HCPCS: 73090; 73110; 99284

== ENCOUNTER 2023-07-23 16:53 | Emergency (ER) | payer MEDICAID, SELFPAY ==
[2023-07-23 17:05] VITALS: BP 122/81; PULSE 98; RESP 17; TEMP 36.8; O2SAT 100; BMI 45.3
--- NOTE | 2023-07-23 17:09 | ED_ITS ---
Discharge Plan Disposition Patient Disposition: Home, Self-Care Condition: Good Prescriptions Prescriptions: New ondansetron HCl 8 mg tablet 8 mg PO Q8H PRN (Reason: nausea and vomiting) 5 Days Qty: 30 0RF No Action metformin 500 mg tablet 500 mg PO BID Qty: 60 2RF escitalopram oxalate 10 mg Tablet 10 mg PO DAILY Referrals Follow up/Referrals: Luis Alberto Calloway APRN [Primary Care Provider] - See instructions Activity Restrictions/Add. Instructions Additional Instructions/Restrictions: COVID19 test results should be available tomorrow Clinical Impressions Clinical Impression: Nausea, Close exposure to 2019 novel coronavirus Instructions Patient Instructions: DI for Nausea -- Adult Discharge ED Provider: Galilea Thao [facility] [place] HPI General Stated complaint: [place],Congested,nausea Mode of Arrival: Ambulatory Source of Information: Patient Limitations: No Limitations Time Seen by Provider: 07/23/23 17:10 Description of Symptoms (Recalled from Triage Doc. by RN): PATIENT C/O NAUSEA AND NASAL CONGESTION X 2 DAYS. RECENTLY EXPOSED TO COVID HEENT Symptoms (Recalled from RN notes): Yes Resp Symptoms (Recalled from RN notes): No Skin Symptoms (Recalled from RN notes): No MS Symptoms (Recalled from RN notes): No Functional Status (Recalled from RN notes): WNL History of Present Illness Provider Complaint: Nausea and nasal congestion since last night. No fever. No vomiting but feels like she could. Son has COVID. Onset (ago): day(s) (1) Location: abdomen Associated symptoms: nausea/vomiting Treatments prior to arrival: none Related Data Home Medications Medication Instructions Recorded Confirmed escitalopram oxalate 10 mg tablet 10 mg PO DAILY 07/16/23 07/23/23 Previous Rx's Medication Instructions Recorded metformin 500 mg tablet 500 mg PO BID #60 tabs 07/15/23 ondansetron HCl 8 mg tablet 8 mg PO Q8H PRN nausea and 07/23/23 vomiting 5 days #30 tabs Allergies Allergy/AdvReac Type Severity Reaction Status Date / Time No Known Allergies Allergy Verified 05/04/23 09:52 Worker's Comp Is this a Worker's Comp case?: No [facility] Disclaimer: The information contained in this section may have been updated after the patient was seen, as this information can be updated by other users. Medical History Cervical dysphagia (~04/2016) Surgical History H/O tubal ligation (~02/2010) H/O: Hx of tonsillectomy (Unknown) Family History No significant family history Social History Smoking Status: Current every day smoker tobacco type: cigarettes alcohol intake: never current occupational status: unemployed Travel in the last 8 weeks: None ROS Obtained: Yes All systems reviewed & no additional complaints except as documented Gastrointestinal Gastrointestingal: Reports nausea Physical Exam General General appearance: alert and in no apparent distress Head Head exam: atraumatic, normocephalic and normal inspection Eye Eye exam: Present normal appearance, PERRL and EOMI ENT ENT exam: Present normal exam, normal oropharynx, mucous membranes moist, TM's normal bilaterally and normal external ear exam Neck Neck exam: Present normal inspection, full ROM and trachea midline; Absent meningismus or lymphadenopathy Chest Chest inspection: Present normal inspection and symmetric chest wall rise; Absent tenderness Respiratory Respiratory exam: Present normal lung sounds bilaterally; Absent respiratory distress Cardiovascular Cardiovascular exam: Present regular rate and normal rhythm; Absent JVD Abdominal Exam Abdominal exam: Present soft and normal bowel sounds; Absent distention, tenderness or guarding Extremities Exam Extremities exam: Present normal inspection, full ROM and normal capillary refill; Absent calf tenderness Back Exam Back exam: Present normal inspection; Absent tenderness Neurological Exam Neurological exam: Present alert and oriented X3 Psychiatric Psychiatric exam: Present normal affect and normal mood Skin Skin exam: Present warm, dry, intact and normal color Lymphatic Lymphatic Findings: no adenopathy Medical Decision Making Anand Inquiry Pt receiving controlled substance: No Vital Signs: 07/23/23 17:05 Temperature 98.2 F Temperature Source Oral Pulse Rate [Left Brachial] 98 H Respiratory Rate 17 Blood Pressure [Left Arm] 122/81 Blood Pressure Mean [Left Arm] 94 Blood Pressure Source [Left Arm] Automatic Cuff Blood Pressure Position [Left Arm] Sitting 02 Sat by Pulse Oximetry 100 Oxygen Delivery Method Room Air Orders (Tests/Meds): ORDERS Category Date Time Status Covid-19 Nasal PCR ([facility]) Routine Lab 07/23/23 17:08 Ordered
[2023-07-23 17:12] VITALS: BP 122/81; PULSE 98; RESP 17; TEMP 36.8; O2SAT 100
== END 2023-07-23 17:15 | disposition home or self-care (01) ==
PROVIDERS: Emergency Provider Physician Assistant; PCP Nurse Practitioner Family
DX: R11.0 Nausea (principal); R09.81 Nasal congestion; F17.210 Nicotine dependence, cigarettes, uncomplicated; Z20.822 Contact with and (suspected) exposure to COVID-19
CPT/HCPCS: 87635; 99212; 99214; G0463

== ENCOUNTER 2023-08-27 08:19 | Outpatient (CLI) | payer MEDICAID, SELFPAY ==
--- NOTE | 2023-08-27 08:20 | MR_ITS ---
FINAL REPORT TECHNIQUE: Multiplanar MR following attempted intra-articular contrast injection CLINICAL HISTORY: Rt Wrist Pain pain when twisting wrist ulnar sided wrist pain felt pop 1 month ago FINDINGS: Note: Injected contrast was extra-articular. Some of the contrast extended into the extensor tendons of the 2nd and 3rd digits. The marrow signal is normal without evidence of edema or fracture. TFCC is intact. Scapholunate ligament is normal. Physiologic joint effusion is noted within the radiocarpal and intercarpal joints. Tendons have a normal appearance. Carpal tunnel is normal. No obvious mass is present. IMPRESSION: Unremarkable MR evaluation of the right wrist. However it should be noted that contrast injection was extra-articular. If desired the study may be repeated at no additional charge to the patient for a true MR arthrogram. Authenticated and ERN
--- NOTE | 2023-08-27 08:20 | IR_ITS ---
FINAL REPORT CLINICAL HISTORY: Rt Wrist Pain 7.72 mGy 84.24 DAP 3:05 fluoro FINDINGS: RIGHT WRIST ARTHROGRAM HISTORY: Acute right wrist pain, recent injury. ATTENDING PHYSICIAN: Dr. Durbin PHYSICIAN CD TECHNICIAN: Kerri Gonzales PA-C PROCEDURE: Informed consent was obtained from the patient. Timeout procedure was performed prior to beginning. The patient was prepped in the usual sterile fashion over the right wrist. Skin was anesthetized with 1% lidocaine. Access to the right wrist joint was attempted using a 21-gauge butterfly needle. Small amount of Isovue contrast was injected. Access to the joint space could not be confirmed. Subsequently, access was attempted using a 25-gauge needle. Small amount of Isovue contrast was injected. Subsequently, dilute gadolinium was attempted to be injected into the joint space. Approximately 1-2 mL were injected. Post injection images are indeterminate for intra-articular placement of contrast. Patient tolerated the procedure well and left the department in good condition. Fluoroscopy time: 3 minutes 5 seconds. Radiation exposure in Reference air Kerma: 7.72 mGy. 6 images were saved. IMPRESSION: Attempted injection of contrast for right wrist arthrogram. It is unclear whether any contrast was intra-articular on the post injection images. Please see subsequent MRI report. Reviewed, Interpreted and Dictated by Fuad Durbin MD Transcribed by Kerri Gonzales PA-C Authenticated and [facility]
[2023-08-27] MEDS: IOPAMIDOL-300 (61%) 100ML VIAL 20 ML IV (10:40)
== END 2023-08-27 23:59 | disposition home or self-care (01) ==
LOC: RAD 08:20
PROVIDERS: PCP Nurse Practitioner Family; Visit Provider Orthopaedic Surgery
DX: M25.531 Pain in right wrist (principal); S69.81XA Other specified injuries of right wrist, hand and finger(s), initial encounter
CPT/HCPCS: 73115; 73222; Q9967

== ENCOUNTER 2023-09-09 14:01 | Outpatient (RCR) | payer MEDICAID, SELFPAY ==
--- NOTE | 2023-09-09 14:58 | HMH.OTOPEV ---
OT Inpatient Evaluation Rehab OT Outpatient Eval Start: 09/09/23 14:39 Freq: Status: Active Protocol: Document 09/09/23 14:39 RMARSHALL (Rec: 09/09/23 14:58 RMARSHALL Laptop) E-signed By Alexus Carrasco, OT Outpatient Therapy Subjective History Subjective History Pt is a 38 year old female. Pt reports for evaluation on due to R wrist pain. 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 Pt reports symptoms were increased due to arthrogram that occurred on 08/27/23. Pt reports pain radiates from wrist up to forearm. Pt states there are periods of time when there is no pain, however , if they move their wrist in a certain way the pain is a 10 /10. Pt also reports cold sensation and tingling of index and middle fingers. Pt states they do have a brace to wear for wrist, however, the structure of the brace causes irritation to back of wrist where placement of needles for arthrogram occurred. Pt's AROM at right wrist is within normal limits. She does demonstrate with a slight decline in strength at wrist. She is right hand dominant and her coin machine assembler strength in right hand is declined. Therapist will continue to see patient in order to address all deficits. R hand STG coin machine assembler strength: 60 lbs R hand LTG coin machine assembler strength: 65 lbs New diagnosis of cancer in past 12 No months? Chief Complaint Pain Symptom Type Ache,Throb,Sharp,Tingling Prior Functional Limitations None Current Functional Limitations Reaching,Lifting,Housework, Sleeping Symptom Description Intermittent,Activity Dependent Level of pain today (0-10) 0 Pain scale - at its best (0-10) 0 Pain scale - at its worst (0-10) 10 Wrist/Hand Eval Wrist Range of Motion Left Wrist Extension Active Range of Motion ( 65 degrees degrees) Wrist Flexion Active Range of Motion ( 80 degrees degrees) Wrist Radial Deviation Active Range of 20 degrees Motion (degrees) Wrist Ulnar Deviation Active Range of 35 degrees Motion (degrees) Forearm Supination Active Range of 90 degrees Motion (degrees) Forearm Pronation Active Range of Motion 90 degrees (degrees) Wrist Manual Muscle Testing Right Wrist Extension Strength Grade 4- Good- Wrist Flexion Strength Grade 4- Good- Wrist Radial Deviation Strength Grade 4- Good- Wrist Ulnar Deviation Strength Grade 4- Good- Forearm Supination Strength Grade 4- Good- Forearm Pronation Strength Grade 4- Good- Rubber Calender Helper/Pinch Strength Left Rubber Calender Helper Strength Measurement (lbs) 60 Right Rubber Calender Helper Strength Measurement (lbs) 50 QuickDA Activities Please rate your ability to do the following activities in the last week by selecting the number below the appropriate response. 1. Open a tight or new jar. Moderate difficulty 2. Do heavy wheel polisher (e.g., wash No difficulty desai, floors). 3. Carry a shopping bag or briefcase. Moderate difficulty 4. Wash your back. Mild difficulty 5. Use a knife to cut food. Mild difficulty 6. Recreational activities in which you Severe difficulty take some force or impact through your arm, shoulder, or hand (e.g., golf, hammering, tennis, etc.). 7. During the past week, to what extent Moderately has your arm, shoulder or hand problem interfered with your normal social activities with family, friends, neighbors or groups? 8. During the past week, were you Moderately limited limited in your work or other regular daily activites as a result of your arm, shoulder or hand problem? 9. Arm, shoulder or hand pain. Severe 10. Tingling (pins and needles) in your Severe arm, shoulder or hand. 11. During the past week, how much Moderate difficulty difficulty have you had sleeping because of the pain in your arm, shoulder or hand? Quick DASH 32 OT Outpatient Assessment Impairments Problems/Impairments Palpation Tenderness,Impaired Range of Motion,Impaired Strength,Impaired Endurance, Impaired Lifting,Impaired Household Care,Impaired Recreational Activities, Impaired Work Activities, Subjective C/O Pain Prognosis Rehab Potential Good Clinical Impression Consistent with Diagnosis Yes Short Term Goals Number of Weeks 3 Increase Strength Yes: 4/5 throughout right wrist Increase Endurance Yes: Pt will tolerate R wrist exercises for ~10 min prior to rest. Decrease Subjective C/O Pain Yes: 5/10 at worst Patient to be Ind w/ HEP Yes: AROM, AAROM, and yellow theraputty exercises Improve Quick Dash Score Yes: Activities: 25 or below All Purpose Clerk Goals Number of Weeks 6 Increase Strength Yes: 5/5 throughout right wrist Increase Endurance Yes: Pt will tolerate R wrist exercises for ~20 minutes prior to rest. Decrease Subjective C/O Pain Yes: 3/10 at worst Patient to be Ind w/ Advanced HEP Yes: Advanced strenthening exercises Improve Quick Dash Score Yes: Activities: 20 or below Outpatient Therapy Plan of Care Treatment Plan May Include Therapeutic Exercise Including Home Yes Exercise Program Manual Therapy Techniques Yes Neuromuscular Re-education Yes Therapeutic Activities to Return to Yes Previous Functional/Work Level ADL/Self Care Education Yes Thermal Modalities Yes Electrical Stimulation Yes Ultrasound/Phonophoresis Yes Iontophoresis Yes Orthotics/Bracing/Splinting Yes Massage Yes Eval/Re-Eval Yes Frequency Times per week 2 Duration Number of Weeks 6 Addendums This patient is a candidate for social No or vocational rehab? Patient/Guardian verbally acknowledges Yes understanding of treatment program and consents to further treatment? Patient/Guardian verbally acknowledges Yes understanding of diagnosis, prognosis and goals for treatment? Eval Complexity OT Charge 61140 - Moderate Complexity Shoulder/Elbow Eval Shoulder Objective Measurements Elbow Objective Measurements PHYSICIAN CERTIFICATION: I certify the specified therapy services for Gillian Jaimes are required, authorized, and reviewed every 30 days.
== END 2023-09-09 14:05 | disposition home or self-care (01) ==
LOC: OT 14:01
PROVIDERS: Visit Provider Physician Assistant Surgical
DX: M25.331 Other instability, right wrist (principal)
CPT/HCPCS: 97166

== ENCOUNTER 2023-10-19 10:00 | Outpatient (RCR) | payer MEDICAID, SELFPAY ==
--- NOTE | 2023-10-11 11:38 | HMH.OTOPEV ---
OT Inpatient Evaluation Rehab OT Outpatient Eval Start: 10/11/23 11:28 Freq: Status: Active Protocol: Document 10/11/23 11:29 RMDANTEHALL (Rec: 10/11/23 11:38 [facility] [id number]) E-signed By Alexus Carrasco, OT Outpatient Therapy Subjective History Subjective History Pt is a 38 year old female. Pt reports for evaluation on due to R wrist pain. 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 Pt reports symptoms were increased due to arthrogram that occurred on 08/27/23. Pt reports pain radiates from wrist up to forearm. Pt states there are periods of time when there is no pain, however , if they move their wrist in a certain way the pain is a 10 /10. Pt also reports cold sensation and tingling of index and middle fingers. Pt states they do have a brace to wear for wrist, however, the structure of the brace causes irritation to back of wrist where placement of needles for arthrogram occurred. Pt's AROM at right wrist is within normal limits. She does demonstrate with a slight decline in strength at wrist. She is right hand dominant and her barrel leveler strength in right hand is declined. Therapist will continue to see patient in order to address all deficits. R hand STG barrel leveler strength: 60 lbs R hand LTG barrel leveler strength: 65 lbs New diagnosis of cancer in past 12 No months? Chief Complaint Pain,Weakness,Decreased Supply Chain Systems Manager Strength Symptom Type Ache,Throb,Sharp,Tingling Symptoms Relieved By Nothing,Heat Symptoms Aggravated By Physical Activity,Twisting, Lifting Prior Functional Limitations None Current Functional Limitations Reaching,Lifting,Housework, Driving,Sleeping,Recreation Activity Symptom Description Intermittent,Activity Dependent Level of pain today (0-10) 0 Pain scale - at its best (0-10) 0 Pain scale - at its worst (0-10) 9 Wrist/Hand Eval Wrist Range of Motion Right Wrist Extension Active Range of Motion ( 70 degrees) Wrist Flexion Active Range of Motion ( 75 degrees) Wrist Radial Deviation Active Range of 30 Motion (degrees) Wrist Ulnar Deviation Active Range of 30 Motion (degrees) Forearm Supination Active Range of 90 Motion (degrees) Forearm Pronation Active Range of Motion 90 (degrees) Wrist Manual Muscle Testing Right Wrist Extension Strength Grade 4- Good- Wrist Flexion Strength Grade 4- Good- Wrist Radial Deviation Strength Grade 4- Good- Wrist Ulnar Deviation Strength Grade 4- Good- Forearm Supination Strength Grade 4- Good- Forearm Pronation Strength Grade 4- Good- Supply Chain Systems Manager/Pinch Strength Left Supply Chain Systems Manager Strength Measurement (lbs) 52 Right Supply Chain Systems Manager Strength Measurement (lbs) 52 QuickDASH Activities Please rate your ability to do the following activities in the last week by selecting the number below the appropriate response. 1. Open a tight or new jar. Severe difficulty 2. Do heavy abrasives sales representative (e.g., wash Mild difficulty desai, floors). 3. Carry a shopping bag or briefcase. Moderate difficulty 4. Wash your back. No difficulty 5. Use a knife to cut food. Mild difficulty 6. Recreational activities in which you Severe difficulty take some force or impact through your arm, shoulder, or hand (e.g., golf, hammering, tennis, etc.). 7. During the past week, to what extent Slightly has your arm, shoulder or hand problem interfered with your normal social activities with family, friends, neighbors or groups? 8. During the past week, were you Moderately limited limited in your work or other regular daily activites as a result of your arm, shoulder or hand problem? 9. Arm, shoulder or hand pain. Moderate 10. Tingling (pins and needles) in your Mild arm, shoulder or hand. 11. During the past week, how much Mild difficulty difficulty have you had sleeping because of the pain in your arm, shoulder or hand? Quick DASH 28 OT Outpatient Assessment Impairments Problems/Impairments Palpation Tenderness,Impaired Strength,Impaired Endurance, Impaired Lifting,Impaired Household Care,Impaired Recreational Activities, Impaired Work Activities, Subjective C/O Pain Prognosis Rehab Potential Good Clinical Impression Consistent with Diagnosis Yes Short Term Goals Number of Weeks 3 Increase Strength Yes: 4/5 throughout right wrist Increase Endurance Yes: Pt will tolerate R wrist exercises for ~10 minutes prior to rest. Decrease Subjective C/O Pain Yes: 5/10 at worst Patient to be Ind w/ HEP Yes: AROM/AAROM exercises and stretches; yellow theraputty Improve Quick Dash Score Yes: Activites: 20 or below Detention Goals Number of Weeks 6 Increase Strength Yes: 5/5 throughout right wrist Increase Endurance Yes: Pt will tolerate ~20 minutes of exercise at R wrist prior to rest. Decrease Subjective C/O Pain Yes: 3/10 at worst Patient to be Ind w/ Advanced HEP Yes: Advanced strengthening Improve Quick Dash Score Yes: Activites: 15 or below Outpatient Therapy Plan of Care Treatment Plan May Include Therapeutic Exercise Including Home Yes Exercise Program Manual Therapy Techniques Yes Neuromuscular Re-education Yes Therapeutic Activities to Return to Yes Previous Functional/Work Level ADL/Self Care Education Yes Dry Needling Yes Thermal Modalities Yes Electrical Stimulation Yes Ultrasound/Phonophoresis Yes Iontophoresis Yes Parrafin Yes Orthotics/Bracing/Splinting Yes Massage Yes Eval/Re-Eval Yes Frequency Times per week 2 Duration Number of Weeks 4 Addendums This patient is a candidate for social No or vocational rehab? Patient/Guardian verbally acknowledges Yes understanding of treatment program and consents to further treatment? Patient/Guardian verbally acknowledges Yes understanding of diagnosis, prognosis and goals for treatment? Eval Complexity OT Charge 49687 - Moderate Complexity Shoulder/Elbow Eval Shoulder Objective Measurements Elbow Objective Measurements PHYSICIAN CERTIFICATION: I certify the specified therapy services for Gillian Jaimes are required, authorized, and reviewed every 30 days.
== END 2023-10-19 10:05 | disposition home or self-care (01) ==
LOC: OT 10:00
PROVIDERS: Visit Provider Nurse Practitioner Family
DX: M25.531 Pain in right wrist (principal); M25.431 Effusion, right wrist; S63.501A Unspecified sprain of right wrist, initial encounter
CPT/HCPCS: 97166

== ENCOUNTER 2023-11-02 17:07 | Emergency (ER) | payer MEDICAID, SELFPAY ==
[2023-11-02 17:22] VITALS: BP 146/92; PULSE 96; RESP 18; TEMP 36.8; O2SAT 96; BMI 49.1
--- NOTE | 2023-11-02 17:29 | ED_ITS ---
Discharge Plan Disposition Patient Disposition: Home, Self-Care Condition: Good Prescriptions Prescriptions: New amoxicillin 875 mg tablet 875 mg PO Q12H Qty: 20 0RF methylprednisolone 4 mg Tablets,Dose Pack 4 mg PO DIRECTED 6 Days Qty: 21 0RF Rx Instructions: Take 1 pack as directed for 6 days No Action diclofenac sodium [Voltaren Arthritis Pain] 1 % gel 2 g topical QID Qty: 100 2RF Rx Instructions: apply to single elbow, wrist or hand; for hand includes palm/fingers/back of hand metformin 500 mg tablet 500 mg PO BID Qty: 60 2RF ondansetron HCl 8 mg tablet 8 mg PO Q8H PRN (Reason: nausea and vomiting) 5 Days Qty: 30 0RF escitalopram oxalate 10 mg Tablet 10 mg PO DAILY Referrals Follow up/Referrals: Luis Alberto Calloway APRN [Primary Care Provider] - See instructions Activity Restrictions/Add. Instructions Additional Instructions/Restrictions: Drink plenty of fluids. Take tylenol or ibuprofen for pain or fever. Take the medications as directed. Follow up with your regular doctor. GO TO THE ER FOR ANY WORSENING SYMPTOMS Clinical Impressions Clinical Impression: Otitis media Stand Alone Forms Stand Alone Forms: Work/School Release Instructions Patient Instructions: Middle Ear Infection, Methylprednisolone, Amoxicillin Discharge ED Provider: Chandana Flores [facility] General Stated complaint: left ear pain Mode of Arrival: Ambulatory Source of Information: Patient Limitations: No Limitations Time Seen by Provider: 11/02/23 17:29 Description of Symptoms (Recalled from Triage Doc. by RN): pt c/o a L ear ache, feeling off balance and R upper gum pain. x3d HEENT Symptoms (Recalled from RN notes): Yes Resp Symptoms (Recalled from RN notes): No Skin Symptoms (Recalled from RN notes): No MS Symptoms (Recalled from RN notes): No Functional Status (Recalled from RN notes): wnl History of Present Illness Provider Complaint: She states that for the past 3 days she has had worsening left ear pain. Related Data Home Medications Medication Instructions Recorded Confirmed escitalopram oxalate 10 mg tablet 10 mg PO DAILY 07/16/23 10/05/23 Previous Rx's Medication Instructions Recorded metformin 500 mg tablet 500 mg PO BID #60 tabs 07/15/23 ondansetron HCl 8 mg tablet 8 mg PO Q8H PRN nausea and 07/23/23 vomiting 5 days #30 tabs diclofenac sodium 1 % topical gel 2 g topical QID #100 grams 08/03/23 (Voltaren Arthritis Pain) amoxicillin 875 mg tablet 875 mg PO Q12H #20 tabs 11/02/23 methylprednisolone 4 mg tablets in 4 mg PO DIRECTED 6 days #21 tabs 11/02/23 a dose pack Allergies Allergy/AdvReac Type Severity Reaction Status Date / Time No Known Allergies Allergy Verified 11/02/23 17:24 Worker's Comp Is this a Worker's Comp case?: No PFSH [facility] Disclaimer: The information contained in this section may have been updated after the patient was seen, as this information can be updated by other users. Medical History Cervical dysphagia (~04/2016) Surgical History H/O: H/O tubal ligation (~02/2010) Hx of tonsillectomy (Unknown) Family History Other No significant family history Social History Smoking Status: Current every day smoker tobacco type: cigarettes alcohol intake: never current occupational status: unemployed Travel in the last 8 weeks: None ROS Obtained: Yes All systems reviewed & no additional complaints except as documented Constitutional Constitutional: Denies chills, Reports fever(s) and Reports poor appetite Eyes Eyes: Denies eye discharge ENT Ears, Nose, Mouth, and Throat: Denies ear discharge, Reports otalgia, Denies hearing loss, Denies sinus pain and Reports sore throat Cardiovascular Cardiovascular: Denies chest pain and Denies dyspnea Respiratory Respiratory: Denies chest congestion, Reports cough and Denies dyspnea Gastrointestinal Gastrointestingal: Denies abdominal pain, diarrhea, nausea or vomiting Musculoskeletal Musculoskeletal: Denies arthralgias Integumentary/Breasts Skin/Breast: Denies rash Physical Exam General General appearance: alert and in no apparent distress Head Head exam: atraumatic, normocephalic and normal inspection Eye Eye exam: Present normal appearance; Absent PERRL or EOMI ENT ENT exam: Present mucous membranes moist and normal external ear exam Expanded ENT Exam TM/Canal exam: Bilateral TM: erythema, bulging and effusion Nose exam: Absent sinus tenderness Nasal speculum exam: Bilateral: normal Mouth exam: Present normal external inspection and other; Absent drooling Teeth exam: Present normal inspection Throat exam: Present tonsillar erythema and tonsillomegaly Neck Neck exam: Present normal inspection, full ROM and trachea midline; Absent tenderness, meningismus or lymphadenopathy Chest Chest inspection: Present normal inspection and symmetric chest wall rise; Absent tenderness Respiratory Respiratory exam: Present normal lung sounds bilaterally; Absent respiratory distress, wheezes or stridor Cardiovascular Cardiovascular exam: Present regular rate, normal rhythm and normal heart sounds; Absent tachycardia or irregular rhythm Abdominal Exam Abdominal exam: Present soft and normal bowel sounds; Absent distention, tenderness, guarding, rebound or rigidity Extremities Exam Extremities exam: Present normal inspection and normal capillary refill; Absent tenderness, joint swelling or calf tenderness Back Exam Back exam: Present normal inspection and full ROM; Absent tenderness, CVA tenderness (R) or CVA tenderness (L) Neurological Exam Neurological exam: Present alert, oriented X3, CN II-XII intact, normal gait and reflexes normal; Absent motor sensory deficit Psychiatric Psychiatric exam: Present normal affect and normal mood Skin Skin exam: Present warm, dry, intact and normal color Lymphatic Lymphatic Findings: no adenopathy Medical Decision Making Medical Records Medical records reviewed: No I reviewed the patient's medical records. Anand Inquiry Pt receiving controlled substance: No Vital Signs: 11/02/23 17:22 Temperature 98.2 F Temperature Source Oral Pulse Rate [Left] 96 H Respiratory Rate 18 Blood Pressure [Right Arm] 146/92 H Blood Pressure Mean [Right Arm] 110 Blood Pressure Source [Right Arm] Automatic Cuff Blood Pressure Position [Right Arm] Sitting 02 Sat by Pulse Oximetry 96 Oxygen Delivery Method Room Air
[2023-11-02 17:43] VITALS: BP 146/92; PULSE 96; RESP 18; TEMP 36.8
== END 2023-11-02 17:50 | disposition home or self-care (01) ==
PROVIDERS: Emergency Provider Nurse Practitioner Family; PCP Nurse Practitioner Family
DX: H66.92 Otitis media, unspecified, left ear (principal); H92.02 Otalgia, left ear
CPT/HCPCS: 99212; 99214; G0463

== ENCOUNTER 2024-01-18 08:02 | Emergency (ER) | payer MEDICAID, SELFPAY ==
[2024-01-18 08:27] VITALS: BP 136/89; PULSE 83; RESP 16; TEMP 37.2; O2SAT 95; BMI 51.1
--- NOTE | 2024-01-18 08:30 | XR_ITS ---
FINAL REPORT CLINICAL HISTORY: pain,,big toe pain COMPARISON: None FINDINGS: Three views of the right foot show evidence of an old chip fracture involving the lateral margin of the first proximal phalanx at the level of the interphalangeal joint. There is no evidence of acute displaced fracture or dislocation of the visualized bony architecture. The joint spaces appear normal. IMPRESSION: No acute bony abnormality. Reviewed, Interpreted and Dictated by Fuad Durbin MD Transcribed by Cecile Haskins Authenticated and [facility]
--- NOTE | 2024-01-18 08:31 | EXP.UTC ---
Discharge Plan Disposition Patient Disposition: Home, Self-Care Condition: Good Prescriptions Prescriptions: No Action diclofenac sodium [Voltaren Arthritis Pain] 1 % gel 2 g topical QID Qty: 100 2RF Rx Instructions: apply to single elbow, wrist or hand; for hand includes palm/fingers/back of hand metformin 500 mg tablet 500 mg PO BID Qty: 60 2RF ondansetron HCl 8 mg tablet 8 mg PO Q8H PRN (Reason: nausea and vomiting) 5 Days Qty: 30 0RF ondansetron 4 mg tablet,disintegrating 4 mg PO Q8H PRN (Reason: nausea and vomiting) 4 Days Qty: 12 0RF grhtbatocqajhnv-kcrntaxil-LB [Bromfed DM] 2-30-10 mg/5 mL syrup 5 ml PO Q6H PRN (Reason: cold symptoms) Qty: 118 0RF escitalopram oxalate 10 mg Tablet 10 mg PO DAILY amoxicillin 875 mg tablet 875 mg PO Q12H Qty: 20 0RF methylprednisolone 4 mg Tablets,Dose Pack 4 mg PO DIRECTED 6 Days Qty: 21 0RF Rx Instructions: Take 1 pack as directed for 6 days Referrals Follow up/Referrals: Luis Alberto Calloway APRN [Primary Care Provider] - See instructions Activity Restrictions/Add. Instructions Additional Instructions/Restrictions: *Monitor Temp, Over the counter Motrin or Tylenol as directed/as needed Tylenol every 4 hours and Motrin every 6 hours (as long as your family doctor has told you that you can take it) for fever or pain. and straight to ER if unable to lower temp less than 101.0 after medication given *Warm salt water gargles may help to soothe the throat *Throat Lozenges? *Warm fluids like tea with honey may help to soothe the throat? *Sleep elevated *Humidifier/Vaporizer Your throat swab was sent for culture. Those results are typically sent to your primary care. Be sure to follow up in 2-3 days with your family doctor/primary care physician if no improvement so they can review those result and treat if necessary. If you don?t have a primary care doctor, I recommend you get one but in the mean time, you will have to return to a walk in clinic Follow up IMMEDIATELY for new or worsening symptoms or no Noticeable improvement over the next 48-72 hours. 911 for difficulty breathing or swallowing You were tested for today for Upper Respiratory Panel with COVID19 your test result should be back in the next 24 hours, you may check for your results on the [facility] My Health Portal Clinical Impressions Clinical Impression: Viral upper respiratory infection Stand Alone Forms Stand Alone Forms: Work/School Release Instructions Patient Instructions: DI for Toe Sprain, DI for Viral Upper Respiratory Infection -- Adult Print Language Print Language: Bolivian Discharge ED Provider[place] Matilde Silva [facility] [place] General Stated complaint: itchy throat, congestion, right foot pain Mode of Arrival: Ambulatory Source of Information: Patient Limitations: No Limitations Time Seen by Provider: 01/18/24 08:31 Description of Symptoms (Recalled from Triage Doc. by RN): Reports throat pain, chills, congestion and problems with her right big toe. HEENT Symptoms (Recalled from RN notes): Yes Resp Symptoms (Recalled from RN notes): No Skin Symptoms (Recalled from RN notes): No MS Symptoms (Recalled from RN notes): Yes Functional Status (Recalled from RN notes): wnl History of Present Illness Provider Complaint: Patient states that she started feeling bad yesterday evening with itchy throat and nasal congestion then last night she started with body aches and chills, States also her child ran into her right great toe and jammed it up and she has been having pain in her toe since so she wanted to get that checked also Related Data Home Medications ?Medication ?Instructions ?Recorded ?Confirmed escitalopram oxalate 10 mg tablet 10 mg PO DAILY 07/16/23 10/05/23 Previous Rx's ?Medication ?Instructions ?Recorded metformin 500 mg tablet 500 mg PO BID #60 tabs 07/15/23 ondansetron HCl 8 mg tablet 8 mg PO Q8H PRN nausea and 07/23/23 vomiting 5 days #30 tabs diclofenac sodium 1 % topical gel 2 g topical QID #100 grams 08/03/23 (Voltaren Arthritis Pain) amoxicillin 875 mg tablet 875 mg PO Q12H #20 tabs 11/02/23 methylprednisolone 4 mg tablets in 4 mg PO DIRECTED 6 days #21 tabs 11/02/23 a dose pack fxnozsutplgduei-oplfhgtdxdinzfn-DT 5 ml PO Q6H PRN cold symptoms #118 09/02/24 2 mg-30 mg-10 mg/5 mL oral syrup mL (Bromfed DM) ondansetron 4 mg disintegrating 4 mg PO Q8H PRN nausea and 12/27/23 tablet vomiting 4 days #12 tabs Allergies Allergy/AdvReac Type Severity Reaction Status Date / Time No Known Allergies Allergy Verified 11/02/23 17:24 Worker's Comp Is this a Worker's Comp case?: No [facility] Disclaimer: The information contained in this section may have been updated after the patient was seen, as this information can be updated by other users. Medical History Cervical dysphagia (~04/2016) Surgical History H/O: H/O tubal ligation (~02/2010) Hx of tonsillectomy (Unknown) Family History Other No significant family history Social History Smoking Status: Current every day smoker tobacco type: cigarettes alcohol intake: never current occupational status: unemployed Travel in the last 8 weeks: None ROS Obtained: Yes All systems reviewed & no additional complaints except as documented and Yes Systems reviewed as appropriate & no additional complaints except as documented Constitutional Constitutional: Reports system reviewed and no additional complaints, except as documented and Reports as per HPI ENT Ears, Nose, Mouth, and Throat: Reports system reviewed and no additional complaints, except as documented, Reports as per HPI, Reports nasal congestion, Reports nasal discharge and Reports sore throat Cardiovascular Cardiovascular: Reports system reviewed and no additional complaints, except as documented and Reports as per HPI Respiratory Respiratory: Reports system reviewed and no additional complaints, except as documented and Reports as per HPI Gastrointestinal Gastrointestingal: Reports system reviewed and no additional complaints, except as documented and as per HPI Musculoskeletal Musculoskeletal: Reports system reviewed and no additional complaints, except as documented, Reports as per HPI and Reports other (Pain in right great toe after child hit it and jammed it up) Physical Exam General General appearance: alert and in no apparent distress ENT ENT exam: Present mucous membranes moist Expanded ENT Exam Nose exam: Absent sinus tenderness Throat exam: Present other (mild pharyngeal erythema note) Respiratory Respiratory exam: Present normal lung sounds bilaterally; Absent respiratory distress or wheezes Cardiovascular Cardiovascular exam: Present regular rate, normal rhythm and normal heart sounds Expanded Lower Extremity Exam Right: Foot/toe exam: Present tenderness Top foot image: 1. reports tenderness and pain, no discoloration no swelling Neurological Exam Neurological exam: Present alert, oriented X3 and normal gait Medical Decision Making Medical Records Screening: Per USPSTF and CDC recommendations, given the prevalence of disease in our region, it is our hospital?s policy to screen for HIV and viral Hepatitis for all patients aged 18 and over and those with ongoing risk factors. Anand Inquiry Pt receiving controlled substance: No Anand was queried for this patient: No Vital Signs: 01/18/24 08:27 Temperature 99.0 F Temperature Source Oral Pulse Rate [Radial] 83 Respiratory Rate 16 Blood Pressure [Right Arm] 136/89 Blood Pressure Mean [Right Arm] 104 Blood Pressure Source [Right Arm] Automatic Cuff Blood Pressure Position [Right Arm] Sitting 02 Sat by Pulse Oximetry 95 Oxygen Delivery Method Room Air Lab Data Lab results reviewed: Yes I reviewed the patient's lab results. Orders (Tests/Meds): ORDERS Category Date Time Status Foot XR right 2 views [XR foot RT 2V] Stat Exams 01/18/24 08:30 Ordered Radiology Data #1: Image(s): Foot/Toes Image Reviewed: Yes I have reviewed radiologist's interpretation no acute bony abnormality
[2024-01-18 08:39] LABS: UTC Strep Screen (Rapid) Negative (Negative)
[2024-01-18 08:46] LABS: UTC Influenza A Antigen Negative (Negative); UTC Influenza B Antigen Negative (Negative)
[2024-01-18 11:06] VITALS: BP 136/89; PULSE 83; RESP 16; TEMP 37.2; O2SAT 95
== END 2024-01-18 11:07 | disposition home or self-care (01) ==
PROVIDERS: Emergency Provider Nurse Practitioner; PCP Nurse Practitioner Family
DX: M79.671 Pain in right foot (principal); R07.0 Pain in throat; R09.81 Nasal congestion; B34.9 Viral infection, unspecified
CPT/HCPCS: 73630; 87635; 87804; 87880; 99212; 99213; G0463

== ENCOUNTER 2024-01-19 07:49 | Emergency (ER) | payer MEDICAID, SELFPAY ==
--- NOTE | 2024-01-19 07:45 | ECG_ITS ---
APPROVED REPORT Exam: Resting ECG HR:77 bpm ECG Measurements Heart Rate 77 AXES HI 108 P 55 QRSd 104 QRS 81 QT 375 T 11 QTc 406 Conclusion SINUS RHYTHM WITH SHORT HI INTERVAL BORDERLINE ECG UNCONFIRMED REPORT Electronically signed by : Orlin Wilkins, 01/19/2024 08:35:15
[2024-01-19 07:52] VITALS: BP 156/86; PULSE 80; RESP 18; TEMP 36.8; O2SAT 99; BMI 48.4
[2024-01-19] MEDS: LACTATED RINGERS 1000ML 1,000 ML 999 ML IV (08:00)
[2024-01-19] MEDS: ONDANSETRON 4MG/2ML VIAL 4 MG IV (08:00)
[2024-01-19 08:01] VITALS: BP 149/72; PULSE 69; RESP 19; O2SAT 98
--- NOTE | 2024-01-19 08:06 | HMH.EDGENADL ---
Discharge Plan Disposition Patient Disposition: Home, Self-Care Prescriptions Prescriptions: New ondansetron 4 mg tablet,disintegrating 4 mg PO Q6H PRN (Reason: nausea and vomiting) Qty: 14 0RF No Action metformin 500 mg tablet 500 mg PO BID Qty: 60 2RF Referrals Follow up/Referrals: Provider,Referral, MD [Referring] - See instructions Activity Restrictions/Add. Instructions Additional Instructions/Restrictions: Take Zofran as needed for nausea and vomiting. Follow-up with primary care doctor. Please return the emerged part with any new, concerning, worsening symptoms including but not limited to inability to tolerate oral intake, intractable nausea and vomiting, concerns for dehydration. Clinical Impressions Clinical Impression: Gastroenteritis Print Language Print Language: Ukrainian Discharge ED Provider: Orlin Wilkins General Adult HPI General Chief complaint: Chest Pain Stated complaint: chest pain Time Seen by Provider: 01/19/24 07:52 Mode of Arrival: Ambulatory Source of Information: Patient Limitations: No Limitations Description of Symptoms (Recalled from ER Triage Doc. by RN): Pt. arrived to ED with complaints of chest pain that started 30 mins ago. She states she was seen in the [email or web address] yesterday for N/V/D, body aches, and malaise x1 day. She believes she may have food poising from eating hotdogs that went bad for 4 days in a row. She states the chest pain is in the center of her chest and does not radiate. History of Present Illness HPI narrative: This is a 38-year-old female with a history of obesity who presents with nausea, vomiting, and diarrhea over the last 2 days. States that she also had a sore throat yesterday and thought she may have strep throat or COVID-19. States that she presented to urgent care treatment center where strep test and COVID test were negative. States that she believes she may have food poisoning. 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 States that she showed the hotdogs to her who told her that they were sour. Reports multiple episodes of watery diarrhea and nonbloody, nonbilious emesis over the last 2 days. Also reports generalized bodyaches. Denies fever. Related Data Previous Rx's ?Medication ?Instructions ?Recorded metformin 500 mg tablet 500 mg PO BID #60 tabs 07/15/23 ondansetron 4 mg disintegrating 4 mg PO Q6H PRN nausea and 01/19/24 tablet vomiting #14 tabs Allergies Allergy/AdvReac Type Severity Reaction Status Date / Time No Known Allergies Allergy Verified 01/19/24 07:51 [facility] Disclaimer: The information contained in this section may have been updated after the patient was seen, as this information can be updated by other users. Medical History (Updated 01/19/24 @ 09:50 by Orlin Wilkins MD) Cervical dysphagia (~04/2016) Surgical History (Updated 01/19/24 @ 07:50 by Vera Cortez RN) H/O lithotripsy H/O: H/O tubal ligation (~02/2010) Hx of tonsillectomy (Unknown) Family History Other No significant family history Social History (Updated 01/19/24 @ 07:51 by Vera Cortez RN) Smoking Status: Current every day smoker tobacco type: cigarettes alcohol intake: never current occupational status: unemployed Travel in the last 8 weeks: None ROS Obtained: Yes All systems reviewed & no additional complaints except as documented Physical Exam General General appearance: alert, in no apparent distress and obese Eye Eye exam: Present normal appearance, PERRL and EOMI Respiratory Respiratory exam: Present normal lung sounds bilaterally; Absent respiratory distress Cardiovascular Cardiovascular exam: Present regular rate and normal rhythm Abdominal Exam Abdominal exam: Present soft and distention; Absent tenderness, guarding or rebound Extremities Exam Extremities exam: Present normal inspection Neurological Exam Neurological exam: Present alert and oriented X3 Skin Skin exam: Present warm and dry Medical Decision Making Medical Records Medical records reviewed: Yes I reviewed the patient's medical records. Screening: Per USPSTF and CDC recommendations, given the prevalence of disease in our region, it is our hospital?s policy to screen for HIV and viral Hepatitis for all patients aged 18 and over and those with ongoing risk factors. MR Comment: Urgent care treatment visit from yesterday with negative strep, COVID, flu swabs Anand Inquiry Pt receiving controlled substance: No Vital Signs: 01/19/24 07:52 01/19/24 08:01 01/19/24 10:04 Temperature 98.3 F 98.0 F Temperature Source Oral Oral Pulse Rate 69 69 Pulse Rate [Right Brachial] 80 Respiratory Rate 18 19 16 Blood Pressure 149/72 H 149/72 H Blood Pressure [Right Arm] 156/86 H Blood Pressure Mean [Right Arm] 109 Blood Pressure Source Automatic Cuff Blood Pressure Source [Right Arm] Automatic Cuff Blood Pressure Position Sitting Blood Pressure Position [Right Arm] Sitting 02 Sat by Pulse Oximetry 99 98 Oxygen Delivery Method Room Air Room Air Room Air Lab Data Lab Results 01/19/24 07:50: WBC 9.8, RBC 4.37, Hgb 12.7, Hct 40.4, MCV 92.4, MCH 29.1, MCHC 31.5 L, RDW 14.0, Plt Count 334, MPV 7.5, Neut % (Auto) 68.1, Lymph % (Auto) 26.7, [place] % (Auto) 3.2, Eos % (Auto) 1.4, Baso % (Auto) 0.6, Neut # (Auto) 6.7, Lymph # (Auto) 2.6, [place] # (Auto) 0.3, Eos # (Auto) 0.1, Baso # (Auto) 0.1, Sodium 139, Potassium 3.6, Chloride 110 H, Carbon Dioxide 26, Anion Gap 6.6, BUN 18 H, Creatinine 0.80, Estimated Creat Clear 76, Estimated GFR 81, Est GFR ( Amer) 98, Glucose 118 H, Calcium 8.7, Magnesium 1.8, Total Bilirubin 0.6, AST 30, ALT 38, Alkaline Phosphatase 67, Total Protein 7.1, Albumin 4.0, Globulin 3.1, Albumin/Globulin Ratio 1.3, Lipase 78, HCG, Quant < 2, HIV 1&2 Antibody Rapid Nonreactive 01/19/24 09:00: Lactate 0.8 01/19/24 07:50 01/19/24 07:50 Orders (Tests/Meds): ED MEDICATIONS Discontinued Medications Generic Name Dose Route Start Last Admin Trade Name Freq PRN Reason Stop Dose Admin Lactated Ringer's 1,000 mls @ 999 mls/hr 01/19/24 07:53 01/19/24 08:00 Lactated Ringer's 1000 Ml Bag IV 01/19/24 08:53 999 mls/hr .Q1H1M ONE Administration Ondansetron HCl 4 mg 01/19/24 07:53 01/19/24 08:00 Ondansetron 4mg/2ml Vial IV 02/18/24 07:59 4 mg Q6H PRN Administration nausea and vomiting ORDERS Category Date Time Status Beta HCG, Quant [HCG,Quantitative] Stat Lab 01/19/24 07:50 Completed CBC w/Auto Diff [Complete Blood Count Auto Diff] Stat Lab 01/19/24 07:50 Completed CMP [Comprehensive Metabolic Panel] Stat Lab 01/19/24 07:50 Completed HIV (1&2) Antibody Rapid Stat Lab 01/19/24 07:50 Completed Hep C Ab with Reflex to RNA Stat Lab 01/19/24 07:50 Received Lactic Acid Stat Lab 01/19/24 09:00 Completed Lipase Stat Lab 01/19/24 07:50 Completed Magnesium Stat Lab 01/19/24 07:50 Completed ECG Data Tracing #1: I reviewed this ECG and interpreted as documented below: Sinus rhythm at a rate of 77, short AK interval at 108, QTc 406, normal axis, no STEMI Medical Decision Narrative: In summary, this 38-year-old female with a history of obesity presents to the emergency department today with bodyaches, nausea, vomiting, and diarrhea for the last 2 days. On initial evaluation patient is afebrile, hemodynamically stable, nontoxic-appearing, nontender abdomen. Differential diagnosis includes but is not limited to viral syndrome, gastroenteritis, pancreatitis. Based on these concerns, I ordered CBC, CMP, lipase, lactate, test. Considered CT abdomen pelvis with IV contrast, however patient had a reassuring abdominal exam with likely gastroenteritis versus viral syndrome as the primary etiology of her symptoms. ECG personally interpreted as noted above. Patient received Zofran as needed and 1 L of lactated Ringer's for treatment. Labs personally reviewed demonstrate unremarkable CBC, no significant electrolyte derangements, normal lipase, normal lactate. On reassessment patient in stable condition with improvement of symptoms, tolerating oral intake without difficulty. Appropriate for discharge and outpatient follow-up at this time. Most likely etiology of her symptoms is gastroenteritis. Prescribe Zofran. Return precautions given. Critical Care Critical Care Time Critical Care Time: No
[2024-01-19 08:23] LABS: Alanine Aminotransferase 38 U/L (12-78); Albumin/Globulin Ratio 1.3 (1.1-1.8); Alkaline Phosphatase 67 U/L (38-126); Anion Gap 6.6 mEq/L (5-15); Aspartate Amino Transferase 30 U/L (14-36); Bilirubin,Total 0.6 mg/dl (0.2-1.3); Blood Urea Nitrogen 18 mg/dl (7-17); Calcium 8.7 mg/dl (8.4-10.2); Carbon Dioxide 26 mmol/L (22.0-30.0); Chloride 110 mmol/L (98-107); Creatinine Clearance Estimated 76 mL/min (50-200); Estimated Glomerular Filt Rate 81 ml/min (>60); GFR (African American) 98 ML/MIN (>60); Globulin 3.1 g/dL (1.3-3.2); Glucose 118 mg/dl (74-100); Lipase 78 U/L (23-300); Magnesium 1.8 mg/dl (1.6-2.3); Potassium 3.6 mmoL/L (3.5-5.1); Sodium 139 mmol/L (136-145); Total Protein,Serum 7.1 g/dl (6.3-8.2)
--- NOTE | 2024-01-19 08:33 | PC.NURSE ---
pt called out stating her palm was itching down from her IV. IV fluids infusing, no redness or swelling noted. pt denies IV hurting or wanting IV in different place. no rash noted.
[2024-01-19 08:43] LABS: Basophils # 0.1 K/mm3 (0-0.2); Basophils % 0.6 % (0.1-2.0); Eosinophils # 0.1 K/mm3 (0.0-0.4); Eosinophils % 1.4 % (0.1-12.0); Hematocrit 40.4 % (37.0-47.0); Hemoglobin 12.7 g/dL (12.2-16.2); Lymphocytes # 2.6 K/mm3 (0.7-4.5); Lymphocytes % 26.7 % (10-50); Mean Corpuscular HGB Conc 31.5 g/dL (31.8-35.4); Mean Corpuscular Hemoglobin 29.1 pg (27.0-31.2); Mean Corpuscular Volume 92.4 fl (81-99); Mean Platelet Volume 7.5 fl (7.4-10.4); Monocytes # 0.3 K/mm3 (0.1-1.0); Monocytes % 3.2 % (1.7-9.3); Neutrophils # 6.7 K/mm3 (1.8-7.8); Neutrophils % 68.1 % (37.0-80.0); Platelet Count 334 K/mm3 (142-424); Red Blood Count 4.37 M/mm3 (4.20-5.40); White Blood Count 9.8 K/mm3 (4.8-10.8)
[2024-01-19 08:46] LABS: HCG,Quantitative < 2 mIU/ml (0-5.42)
[2024-01-19 09:30] LABS: Lactic Acid 0.8 mmol/L (0.7-2.1)
[2024-01-19 09:56] LABS: HIV (1&2) Antibody Rapid NONREACTIVE (NONREACTIVE)
[2024-01-19 10:04] VITALS: BP 149/72; PULSE 69; RESP 16; TEMP 36.7; O2SAT 98
[2024-01-20 08:51] LABS: HCV Ab Non Reactive (Non Reactive)
== END 2024-01-19 10:05 | disposition home or self-care (01) ==
PROVIDERS: Emergency Provider Student in an Organized Health Care Education/Training Program; PCP Nurse Practitioner Family
DX: K52.9 Noninfective gastroenteritis and colitis, unspecified (principal); R11.2 Nausea with vomiting, unspecified
CPT/HCPCS: 80053; 83605; 83690; 83735; 84702; 85025; 86803; 87389; 93005; 96361; 96374; 99284; J2405; J7120

== ENCOUNTER 2024-01-24 17:13 | Emergency (ER) | payer MEDICAID, SELFPAY ==
[2024-01-24 17:30] VITALS: BP 149/92; PULSE 83; RESP 19; TEMP 37.6; O2SAT 97; BMI 50.8
--- NOTE | 2024-01-24 17:31 | EXP.UTC ---
Discharge Plan Disposition Patient Disposition: Home, Self-Care Condition: Good Prescriptions Prescriptions: New ondansetron 4 mg Tablet,Disintegrating 4 mg PO Q8H PRN (Reason: Nausea) Qty: 12 0RF No Action metformin 500 mg tablet 500 mg PO BID Qty: 60 2RF ondansetron 4 mg tablet,disintegrating 4 mg PO Q6H PRN (Reason: nausea and vomiting) Qty: 14 0RF Referrals Follow up/Referrals: Luis Alberto Calloway APRN [Primary Care Provider] - See instructions Activity Restrictions/Add. Instructions Additional Instructions/Restrictions: Drink plenty of fluids. Take tylenol or ibuprofen for pain or fever. Take the medications as directed. Follow up with your regular doctor. GO TO THE ER FOR ANY WORSENING SYMPTOMS Clinical Impressions Clinical Impression: Acute viral syndrome Stand Alone Forms Stand Alone Forms: Work/School Release Instructions Patient Instructions: DI for Viral Syndrome Print Language Print Language: Upper Sorbian Discharge ED Provider: Chandana Flores [facility] [place] General Stated complaint: sore throat Time Seen by Provider: 01/24/24 17:30 History of Present Illness Provider Complaint: She states that for the past 3 days she has had sore throat and malaise. Related Data Previous Rx's ?Medication ?Instructions ?Recorded metformin 500 mg tablet 500 mg PO BID #60 tabs 07/15/23 ondansetron 4 mg disintegrating 4 mg PO Q6H PRN nausea and 01/19/24 tablet vomiting #14 tabs ondansetron 4 mg disintegrating 4 mg PO Q8H PRN Nausea #12 tabs 01/24/24 tablet Allergies Allergy/AdvReac Type Severity Reaction Status Date / Time No Known Allergies Allergy Verified 01/19/24 07:51 [facility] Disclaimer: The information contained in this section may have been updated after the patient was seen, as this information can be updated by other users. Medical History (Updated 01/24/24 @ 18:20 by Chandana Flores APRN) Cervical dysphagia (~04/2016) Surgical History (Updated 01/19/24 @ 07:50 by Vera Cortez RN) H/O lithotripsy H/O: H/O tubal ligation (~02/2010) Hx of tonsillectomy (Unknown) Family History Other No significant family history Social History (Updated 01/19/24 @ 07:51 by Vera Cortez RN) Smoking Status: Current every day smoker tobacco type: cigarettes alcohol intake: never current occupational status: unemployed Travel in the last 8 weeks: None ROS Obtained: Yes All systems reviewed & no additional complaints except as documented Constitutional Constitutional: Reports chills and Reports fever(s) Eyes Eyes: Denies eye discharge ENT Ears, Nose, Mouth, and Throat: Reports as per HPI Cardiovascular Cardiovascular: Denies chest pain Respiratory Respiratory: Denies chest congestion and Reports cough Gastrointestinal Gastrointestingal: Reports nausea; Denies abdominal pain, constipation, cramping, diarrhea or vomiting Musculoskeletal Musculoskeletal: Denies arthralgias Integumentary/Breasts Skin/Breast: Denies rash Neurologic Neurologic: Denies paresthesias Physical Exam General General appearance: alert and in no apparent distress Head Head exam: atraumatic, normocephalic and normal inspection Eye Eye exam: Present normal appearance, PERRL and EOMI ENT ENT exam: Present normal exam, normal oropharynx, mucous membranes moist, TM's normal bilaterally and normal external ear exam Neck Neck exam: Present normal inspection, full ROM and trachea midline; Absent meningismus or lymphadenopathy Chest Chest inspection: Present normal inspection and symmetric chest wall rise; Absent tenderness Respiratory Respiratory exam: Present normal lung sounds bilaterally; Absent respiratory distress Cardiovascular Cardiovascular exam: Present regular rate and normal rhythm; Absent JVD Abdominal Exam Abdominal exam: Present soft and normal bowel sounds; Absent distention, tenderness or guarding Extremities Exam Extremities exam: Present normal inspection, full ROM and normal capillary refill; Absent calf tenderness Back Exam Back exam: Present normal inspection; Absent tenderness Neurological Exam Neurological exam: Present alert and oriented X3 Psychiatric Psychiatric exam: Present normal affect and normal mood Skin Skin exam: Present warm, dry, intact and normal color Lymphatic Lymphatic Findings: no adenopathy Medical Decision Making Medical Records Medical records reviewed: No I reviewed the patient's medical records. Screening: Per USPSTF and CDC recommendations, given the prevalence of disease in our region, it is our hospital?s policy to screen for HIV and viral Hepatitis for all patients aged 18 and over and those with ongoing risk factors. Anand Inquiry Pt receiving controlled substance: No Lab Data Lab results reviewed: Yes I reviewed the patient's lab results.
[2024-01-24 17:45] LABS: UTC Strep Screen (Rapid) Negative (Negative)
[2024-01-24 18:22] VITALS: BP 149/92; PULSE 83; RESP 19; TEMP 37.6; O2SAT 97
== END 2024-01-24 18:29 | disposition home or self-care (01) ==
PROVIDERS: Emergency Provider Nurse Practitioner Family; PCP Nurse Practitioner Family
DX: R07.0 Pain in throat; R53.81 Other malaise; B34.9 Viral infection, unspecified
CPT/HCPCS: 87635; 87880; 99212; 99214; G0463

== ENCOUNTER 2024-03-01 08:25 | Emergency (ER) | payer MEDICAID, SELFPAY ==
--- NOTE | 2024-03-01 08:33 | EXP.UTC ---
Discharge Plan Disposition Patient Disposition: Home, Self-Care Condition: Good Prescriptions Prescriptions: New amoxicillin 875 mg tablet 875 mg PO Q12H Qty: 20 0RF [id number]-[id number] [Bromfed DM] 2-30-10 mg/5 mL Syrup 5 ml PO Q6H PRN (Reason: Cough) Qty: 240 0RF ondansetron 4 mg Tablet,Disintegrating 4 mg PO Q8H PRN (Reason: Nausea) Qty: 12 0RF Referrals Follow up/Referrals: Luis Alberto Calloway APRN [Primary Care Provider] - See instructions Activity Restrictions/Add. Instructions Additional Instructions/Restrictions: Drink plenty of fluids. Take tylenol or ibuprofen for pain or fever. Take the medications as directed. Take the zofran (ondesetron) as directed for nausea/vomiting. Apply warm wet compresses to the affected areas on your left arm and right leg three times per day for the next few days. Follow up with your regular doctor. GO TO THE ER FOR ANY WORSENING SYMPTOMS Clinical Impressions Clinical Impression: Pharyngitis, Erythema nodosum, Acute viral syndrome Stand Alone Forms Stand Alone Forms: Work/School Release Instructions Patient Instructions: DI for Pharyngitis/Tonsillopharyngitis -- Adult, DI for Erythema Nodosum Print Language Print Language: Wolof Discharge ED Provider: Chandana Flores [facility] General Stated complaint: swollen throat trouble swallowing Time Seen by Provider: 03/01/24 08:33 Related Data Previous Rx's ?Medication ?Instructions ?Recorded amoxicillin 875 mg tablet 875 mg PO Q12H #20 tabs 03/01/24 agzdgtutfddyrho-qunoktsyrjbrpdt-[id number] 5 ml PO Q6H PRN Cough #240 mL 03/01/24 2 mg-30 mg-10 mg/5 mL oral syrup (Bromfed DM) ondansetron 4 mg disintegrating 4 mg PO Q8H PRN Nausea #12 tabs 03/01/24 tablet Allergies Allergy/AdvReac Type Severity Reaction Status Date / Time No Known Allergies Allergy Verified 01/19/24 07:51 [facility] Disclaimer: The information contained in this section may have been updated after the patient was seen, as this information can be updated by other users. Medical History (Updated 03/01/24 @ 09:17 by Chandana Flores APRN) Cervical dysphagia (~04/2016) Surgical History (Updated 01/19/24 @ 07:50 by Vera Cortez RN) H/O lithotripsy H/O: H/O tubal ligation (~02/2010) Hx of tonsillectomy (Unknown) Family History Other No significant family history Social History (Updated 01/19/24 @ 07:51 by Vera Cortez RN) Smoking Status: Current every day smoker tobacco type: cigarettes alcohol intake: never current occupational status: unemployed Travel in the last 8 weeks: None ROS Obtained: Yes All systems reviewed & no additional complaints except as documented Constitutional Constitutional: Reports chills and Reports fever(s) Eyes Eyes: Denies eye discharge ENT Ears, Nose, Mouth, and Throat: Reports as per HPI Cardiovascular Cardiovascular: Denies chest pain Respiratory Respiratory: Denies chest congestion and Reports cough Gastrointestinal Gastrointestingal: Reports nausea; Denies abdominal pain, constipation, cramping, diarrhea or vomiting Musculoskeletal Musculoskeletal: Denies arthralgias Integumentary/Breasts Skin/Breast: Denies rash Neurologic Neurologic: Denies paresthesias Physical Exam General General appearance: alert and in no apparent distress Head Head exam: atraumatic, normocephalic and normal inspection Eye Eye exam: Present normal appearance, PERRL and EOMI ENT ENT exam: Present mucous membranes moist and normal external ear exam Expanded ENT Exam TM/Canal exam: Bilateral TM: erythema and bulging Nose exam: Absent sinus tenderness Mouth exam: Present normal external inspection; Absent drooling Teeth exam: Present normal inspection Throat exam: Present tonsillar erythema, tonsillomegaly and tonsillar exudate Neck Neck exam: Present normal inspection, full ROM and trachea midline; Absent tenderness, meningismus or lymphadenopathy Chest Chest inspection: Present normal inspection and symmetric chest wall rise; Absent tenderness Respiratory Respiratory exam: Present normal lung sounds bilaterally; Absent respiratory distress, wheezes, stridor or accessory muscle use Cardiovascular Cardiovascular exam: Present regular rate and normal rhythm; Absent systolic murmur or diastolic murmur Abdominal Exam Abdominal exam: Present soft and normal bowel sounds; Absent distention, tenderness, guarding, rebound or rigidity Extremities Exam Extremities exam: Present normal inspection and normal capillary refill; Absent calf tenderness Back Exam Back exam: Present normal inspection and full ROM; Absent tenderness, CVA tenderness (R) or CVA tenderness (L) Neurological Exam Neurological exam: Present alert, oriented X3 and CN II-XII intact Psychiatric Psychiatric exam: Present normal affect and normal mood Skin Skin exam: Present warm, dry, intact and normal color Medical Decision Making Medical Records Medical records reviewed: No I reviewed the patient's medical records. Screening: Per USPSTF and CDC recommendations, given the prevalence of disease in our region, it is our hospital?s policy to screen for HIV and viral Hepatitis for all patients aged 18 and over and those with ongoing risk factors. Anand Inquiry Pt receiving controlled substance: No Lab Data Lab results reviewed: Yes I reviewed the patient's lab results.
[2024-03-01 08:40] VITALS: BP 145/96; PULSE 86; RESP 18; TEMP 36.6; O2SAT 96; BMI 49.2
[2024-03-01 09:07] LABS: UTC Strep Screen (Rapid) Negative (Negative)
[2024-03-01 09:26] VITALS: BP 145/96; PULSE 86; RESP 18; TEMP 36.6
[2024-03-01 09:34] LABS: Coronavirus 19, PCR Not Detected (NotDetected); Influenza A, PCR Not Detected (NotDetected); Influenza B, PCR Not Detected (NotDetected)
== END 2024-03-01 09:28 | disposition home or self-care (01) ==
PROVIDERS: Emergency Provider Nurse Practitioner Family; PCP Nurse Practitioner Family
DX: J02.9 Acute pharyngitis, unspecified (principal); B34.9 Viral infection, unspecified
CPT/HCPCS: 87636; 87880; 99213; G0381

== ENCOUNTER 2024-05-24 10:15 | Outpatient (CLI) | payer MEDICAID, SELFPAY ==
--- NOTE | 2024-05-24 10:18 | XR_ITS ---
FINAL REPORT CLINICAL HISTORY: foot pain COMPARISON: 01/18/2024 FINDINGS: RIGHT FOOT Three views demonstrate no acute fracture or dislocation. The joint spaces appear normal. No acute soft tissue abnormality is seen. IMPRESSION: No acute bony abnormality. Reviewed, Interpreted and Dictated by Dilan Rodriguez MD Transcribed by Autumn Hu Authenticated and [facility]
--- NOTE | 2024-05-24 10:18 | XR_ITS ---
FINAL REPORT CLINICAL HISTORY: foot pain COMPARISON: None FINDINGS: LEFT FOOT Three views demonstrate no acute fracture or dislocation. The joint spaces appear normal. No acute soft tissue abnormality is seen. IMPRESSION: No acute bony abnormality. Reviewed, Interpreted and Dictated by Dilan Rodriguez MD Transcribed by Autumn Hu Authenticated and [facility]
== END 2024-05-24 23:59 | disposition home or self-care (01) ==
LOC: RAD 10:16
PROVIDERS: PCP Nurse Practitioner Family; Visit Provider Family Medicine
DX: M79.671 Pain in right foot (principal); M79.672 Pain in left foot
CPT/HCPCS: 73630

== ENCOUNTER 2024-06-10 06:23 | Emergency (ER) | payer MEDICAID, SELFPAY ==
[2024-06-10 06:24] VITALS: BP 144/95; PULSE 86; RESP 20; TEMP 36.8; O2SAT 97; BMI 51.0
--- NOTE | 2024-06-10 06:33 | ED_ITS ---
Discharge Plan Disposition Patient Disposition: Home, Self-Care Condition: Good Prescriptions Prescriptions: New amoxicillin 875 mg tablet 875 mg PO BID Qty: 10 0RF No Action meloxicam 7.5 mg tablet 7.5 mg PO DAILY Qty: 30 2RF methylprednisolone 4 mg tablets,dose pack 4 mg PO PER PKG DIR Qty: 21 0RF diclofenac sodium [Voltaren Arthritis Pain] 1 % gel 4 g topical QID PRN (Reason: pain) Qty: 100 2RF Rx Instructions: apply to single knee, ankle, foot; for foot includes sole/toes/top of foot permethrin [Elimite] 5 % cream 1 applic topical Q14D Qty: 60 0RF Rx Instructions: apply second treatment 14 days after first treatment if live lice remain Referrals Follow up/Referrals: Luis Alberto Calloway APRN [Primary Care Provider] - See instructions Activity Restrictions/Add. Instructions Additional Instructions/Restrictions: You were evaluated in the ER and are appropriate for discharge at this time. Continue your home medications as prescribed. Take Tylenol if needed for pain with your meloxicam. Do not exceed the recommended dose on the bottle. Drink water and eat a small snack each time you take these medications to avoid side effects. Take the prescribed amoxicillin as directed, do not skip doses, do not stop taking it early. Follow-up with your primary care doctor for reevaluation in a few days. Return to the ER with new, worsening, or otherwise concerning symptoms. Clinical Impressions Clinical Impression: Acute right otitis media Stand Alone Forms Stand Alone Forms: Work/School Release Print Language Print Language: Macedonian Discharge ED Provider: Shruthi Diop General Adult HPI General Chief complaint: Upper Respiratory Infection Stated complaint: L ear, throat pain, phlegm Time Seen by Provider: 06/10/24 06:31 History of Present Illness HPI narrative: 38-year-old female currently on prednisone and meloxicam for plantar fasciitis presents to the ER with complaints of left ear pain. She reports she has had mild congestion and cough for last few days. She woke up with left ear pain. She denies headache, dizziness, numbness, tingling, weakness. She does report mild sore throat. She has no chest pain or difficulty breathing, she had an episode of emesis yesterday but no emesis today, no nausea, diarrhea, constipation, or abdominal pain. No fevers or chills at home. Patient presented for evaluation of the left ear. Related Data Previous Rx's ?Medication ?Instructions ?Recorded permethrin 5 % topical cream 1 applic topical Q14D 2 doses #60 05/31/24 (Elimite) grams diclofenac sodium 1 % topical gel 4 g topical QID PRN pain #100 grams 06/06/24 (Voltaren Arthritis Pain) meloxicam 7.5 mg tablet 7.5 mg PO DAILY #30 tabs 06/06/24 methylprednisolone 4 mg tablets in 4 mg PO PER PKG DIR Pain, swelling 06/06/24 a dose pack #21 tabs amoxicillin 875 mg tablet 875 mg PO BID #10 tabs 06/10/24 Allergies Allergy/AdvReac Type Severity Reaction Status Date / Time No Known Allergies Allergy Verified 06/06/24 09:40 [facility] Disclaimer: The information contained in this section may have been updated after the patient was seen, as this information can be updated by other users. Medical History Cervical dysphagia (~04/2016) Surgical History H/O lithotripsy H/O: H/O tubal ligation (~02/2010) Hx of tonsillectomy (Unknown) Family History Other No significant family history Social History Smoking Status: Never smoker alcohol intake: never current occupational status: unemployed Travel in the last 8 weeks: None Have you lived/traveled outside [place] in past 30 days?: No Contact w/someone who lives/traveled outside [place] past 30 days?: No Exposure to someone with infectious disease in past 14 days?: No Do you have a fever (greater than 100.4 F or 38 C)?: No Have you tested positive for COVID-19: No Exposed to someone with COVID-19 in past 14 days?: No Do you have a sore throat?: Yes Do you have a cough?: No Do you have any weakness?: No Do you have any diarrhea?: No Are you experiencing any unusual bleeding?: No Do you have any muscle aches/pain?: No Do you have any abdominal pain?: No Are you experiencing loss of taste or smell?: No Other Medical History Have you received the Flu Vaccine for this season: No Have you received the Pneumonia Vaccine: No ROS Obtained: Yes Systems reviewed as appropriate & no additional complaints except as documented Per HPI Physical Exam General General appearance: alert, in no apparent distress and obese Head Head exam: atraumatic and normocephalic Eye Eye exam: Present PERRL and EOMI ENT ENT exam: Present mucous membranes moist, normal external ear exam and other (No mastoid redness, swelling, or tenderness); Absent normal oropharynx (Mild erythema of the posterior oropharynx but no tonsillomegaly or exudate, structures are symmetrical, normal phonation, no pain with extension or movement of the neck) or TM's normal bilaterally (Left TM with erythema, bulging, purulent effusion) Neck Neck exam: Present normal inspection and full ROM; Absent lymphadenopathy Chest Chest inspection: Present symmetric chest wall rise Respiratory Respiratory exam: Present normal lung sounds bilaterally; Absent respiratory distress, wheezes or stridor Cardiovascular Cardiovascular exam: Present regular rate and normal rhythm Abdominal Exam Abdominal exam: Present soft; Absent distention or tenderness Extremities Exam Extremities exam: Present full ROM; Absent edema Neurological Exam Neurological exam: Present alert, oriented X3, CN II-XII intact and normal gait; Absent motor sensory deficit Psychiatric Psychiatric exam: Present normal affect and normal mood Skin Skin exam: Present warm and dry Medical Decision Making Medical Records Medical records reviewed: Yes I reviewed the patient's medical records. Screening: Per USPSTF and CDC recommendations, given the prevalence of disease in our region, it is our hospital?s policy to screen for HIV and viral Hepatitis for all patients aged 18 and over and those with ongoing risk factors. MR Comment: Patient evaluated by podiatry on 06/06/2024, note demonstrates patient had left heel pain, diagnosed with plantar fasciitis, started on diclofenac, methylprednisolone, meloxicam. Provided stretching and exercises recommendations as well as steroid injection to the left heel with dexamethasone Anand Inquiry Pt receiving controlled substance: No Vital Signs: 06/10/24 06:24 06/10/24 06:44 Temperature 98.3 F 98.3 F Temperature Source Oral Pulse Rate 87 Pulse Rate [Apical] 86 Respiratory Rate 20 20 Blood Pressure 00/00 L Blood Pressure [Right Arm] 144/95 H Blood Pressure Mean [Right Arm] 111 02 Sat by Pulse Oximetry 97 Oxygen Delivery Method Room Air Room Air Orders (Tests/Meds): ED MEDICATIONS Discontinued Medications Generic Name Dose Route Start Last Admin Trade Name Cleve PRN Reason Stop Dose Admin Acetaminophen 1,000 mg 06/10/24 06:31 06/10/24 06:37 Acetaminophen 500mg Tab PO 06/10/24 06:32 1,000 mg ONCE ONE Administration Amoxicillin 1,000 mg 06/10/24 06:31 06/10/24 06:38 Amoxicillin 500mg Capsule PO 06/10/24 06:32 1,000 mg ONCE ONE Administration Medical Decision Narrative: In summary, this 38-year-old female with active plantar fasciitis presents to the emergency department today with left ear pain, sore throat. On initial eval uation patient is hemodynamically stable, afebrile, lungs clear bilaterally, physical exam notable for erythematous, bulging left tympanic membrane with obvious purulent effusion, right TM normal, patient has mild erythema of the posterior oropharynx but no tonsillomegaly or exudate, no lymphadenopathy. Differential diagnosis includes but is not limited to viral syndrome, considered otitis externa but do not appreciate evidence of this, considered otitis media of which there is obvious evidence, considered strep throat but patient is afebrile with no tonsillomegaly or exudates, absent lymphadenopathy, much less likely, will not test for strep at this time. Also considered peritonsillar abscess or retropharyngeal abscess but have no evidence of this on exam, patient is very well-appearing and structures are symmetrical with no pain with movement of the neck. I do not believe patient requires any labs or imaging at this time. She was provided a dose of amoxicillin in the ER for otitis media as well as Tylenol for pain management. I prescribed amoxicillin for outpatient management. Patient was given instructions on symptomatic monitoring and management, instructions for medication use, follow up instructions, and return precautions for the emergency department. Patient indicated understanding and was discharged in stable condition. Critical Care Critical Care Time Critical Care Time: No
[2024-06-10] MEDS: ACETAMINOPHEN 500MG TAB 1000 MG PO (06:37)
[2024-06-10] MEDS: AMOXICILLIN 500MG CAPSULE 1000 MG PO (06:38)
[2024-06-10 06:44] VITALS: BP 00/00; PULSE 87; RESP 20; TEMP 36.8; O2SAT 100
--- NOTE | 2024-06-10 06:52 | PC.NURSE ---
THIS RN NEEDED TO INCLUDE BLOOD PRESSURE OF 148/76 FOR PT PRIOR TO DISCHARGE IT APPEARS THERE WAS NON DOCUMENTED BY ACCIDENT. PROVIDER AWARE.
== END 2024-06-10 06:43 | disposition home or self-care (01) ==
PROVIDERS: Emergency Provider Emergency Medicine; PCP Nurse Practitioner Family
DX: H66.92 Otitis media, unspecified, left ear (principal); H92.02 Otalgia, left ear; R09.81 Nasal congestion; R05.9 Cough, unspecified; J02.9 Acute pharyngitis, unspecified
CPT/HCPCS: 99283